=== PATIENT | female | born 1975 | race Caucasian/White ===

== ENCOUNTER 2017-08-05 12:23 | Inpatient (IN) | payer OTHER ==
[~2017-08-05] VITALS: Ht 165.1 cm; Wt 128.8 kg
[~2017-08-05 12:23] MED LIST: ACET-8386 PO; BUPR100T3 PO; CALC500C17 PO; CITA40TA13 PO; FENO145T PO; GEMF600T5 PO; GLU500 PO; GLYB5TAB14 PO; TRAZ-289 PO
[2017-08-05 12:28] VITALS: BP 144/71
--- NOTE | 2017-08-05 12:35 | NUR ---
PT AMBULATES W/ STEADY GAIT TO BED 11 AT THIS TIME.
--- NOTE | 2017-08-05 12:40 | NUR ---
42 YO F BIB FAMILY FRIEND W/ C/O EPIGASTRIC PAIN 10/10 THAT IS SHARP AND RADIATES TO HER BACK X 1.5 HOURS. PT DENIES SOB, BUT REPORTS SHE HAS N/V. SKIN IS WARM AND DRY TO THE TOUCH. PT IS RELAXING ON [facility] DURING ASSESSMENT. RR EVEN AND UNLABORED. LUNG SOUNDS CLEAR. PT DENIES ABD PAIN. A&O X 4. GCS 15. CMS INTACT, NO EDEMA NOTED. ER MD SECHRIST NOTIFIED OF PT STATUS. PT NEEDS MET. SAFETY PRECAUTIONS IN PLACE. WILL CONTINUE TO MONITOR.
[2017-08-05] MEDS ORDERED: HYDROmorphone PFS 2 MG/ML SYR IVP ONE ×2 (13:15→14:50)
[2017-08-05] MEDS ORDERED: ONDANSETRON 4 MG/2 ML VIAL IVP ONE (13:15)
--- NOTE | 2017-08-05 13:45 | NUR ---
pt resting in [facility] at this time. will continue to monitor.
[2017-08-05 14:42] LABS: BASOPHILS # (AUTO) 0.1 K/uL (0.00-0.22); BASOPHILS % (AUTO) 0.6 % (0.0-2.0); EOSINOPHILS # (AUTO) 0.5 K/uL (0-0.4); EOSINOPHILS % (AUTO) 4.2 % (0.0-4.0); HEMATOCRIT 35.4 % (36-48); HEMOGLOBIN 11.7 g/dL (12.0-16.0); LYMPHOCYTES # (AUTO) 3.1 K/uL (2.5-16.5); LYMPHOCYTES % (AUTO) 28.8 % (20.5-51.1); MEAN CORPUSCULAR HEMOGLOBIN 27 pg (27-31); MEAN CORPUSCULAR HGB CONC 33 g/dL (33-37); MEAN CORPUSCULAR VOLUME 81.7 fL (80-94); MONOCYTES # (AUTO) 0.4 K/uL (0.8-1.0); NEUTROPHILS # (AUTO) 6.8 K/uL (1.8-7.7); NEUTROPHILS % (AUTO) 62.4 % (42.2-75.2); PLATELET COUNT (AUTO) 232 K/uL (140-450); RED BLOOD CELL COUNT(AUTO) 4.34 MIL/uL (4.20-5.40)
[2017-08-05 14:48] LABS: WHITE BLOOD COUNT (AUTO) 10.8 K/uL (4.8-10.8)
--- NOTE | 2017-08-05 14:50 | NUR ---
Pt dry heaving at this time. pt requesting a cup of ice chips, which was provided as tolerated. will continue to monitor.
[2017-08-05] MEDS ORDERED: NACL 0.9% 1,000 ML IV SCH ×2 (15:06→17:45)
[2017-08-05] MEDS ORDERED: ACETAMINOPHEN 325 MG TAB PO PRN (15:10)
[2017-08-05 16:35] VITALS: BP 171/89
--- NOTE | 2017-08-05 16:35 | NUR ---
RECEIVED PT VIA NAGI, PT IS AAOX4, AMBULATORY, IV IS ON THE LEFT FA, PATENT, INTACT FLUSHING WELL, PATIENT COMPLAINING OF ABDOMINAL PAIN, 12/11, NO RESPIRATORY DISTRESS NOTED, DISCUSSED PLAN OF CARE WITH PT, PT VERBALIZED UNDERSTANDING, SAFETY/FALL PRECAUTIONS ARE IN PLACE, CALL LIGHT WITHIN REACH, WILL CONTINUE TO MONITOR.
--- NOTE | 2017-08-05 16:38 | NUR ---
Patient will be admitted to care of Dr Rodriguez. Admited to Tele. Will go to [id number]. Belongings list completed. Report to DAVID Dickson.
--- NOTE | 2017-08-05 17:37 | NUR ---
PAGED DR. KUMAR FOR ADMITTING ORDERS.
[2017-08-05] MEDS ORDERED: MORPHINE SULFATE 4 MG/ML SYR IVP PRN (17:45)
[2017-08-05] MEDS ORDERED: ONDANSETRON 4 MG/2 ML VIAL IVP PRN (17:50)
[2017-08-05] MEDS: HYDROmorphone PFS 2 MG/ML SYR IVP PRN ×2 (18:19→22:52)
[2017-08-05 19:07] LABS: POTASSIUM 3.4 mmol/L (3.5-5.1)
[2017-08-05 19:08] LABS: ANION GAP 22.4 (8-16); CREATININE 0.7 mg/dL (0.6-1.3); TOTAL BILIRUBIN 0.4 mg/dL (0.0-1.0)
[2017-08-05 19:09] LABS: ALBUMIN 3.8 g/dL (3.4-5.0)
--- NOTE | 2017-08-05 19:31 | NUR ---
ENDORSED PT TO CABLE ARMORER NURSE FOR CONTINUITY OF CARE. PT STABLE AT THIS TIME, FAMILY IS AT BEDSIDE.
--- NOTE | 2017-08-05 19:31 | NUR ---
RECEIVED PATIENT AWAKE IN BED WITH FAMILY MEMBERS. CALL LIGHT WITHIN REACH. DISCUSS PLAN OF CARE. WILL CONTINUE TO MONITOR.
[2017-08-05 20:00] VITALS: BP 136/77
--- NOTE | 2017-08-05 21:35 | NUR ---
SEEN PATIENT ASLEEP IN BED. NO COMPLAIN OF PAIN AT THIS TIME. CALL LIGHT WITHIN REACH. WILL CONTINUE TO MONITOR.
[2017-08-05] MEDS: DEXT 5% / NACL 0.45% 1,000 ML IV SCH (23:45)
[2017-08-06] VITALS: BP 139/83
--- NOTE | 2017-08-06 00:05 | NUR ---
DR. KUMAR SEE THE PATIENT AND ORDERED LIPASE AND CMP. CALLED LAB AND SPOKE TO DR. KUMAR ABOUT THE NEW ORDER.
[2017-08-06] MEDS: ONDANSETRON 4 MG/2 ML VIAL IVP PRN ×4 (01:05→23:23)
[2017-08-06] MEDS: HYDROmorphone PFS 2 MG/ML SYR IVP PRN ×3 (03:41→23:17)
[2017-08-06 04:00] VITALS: BP 136/81
--- NOTE | 2017-08-06 07:27 | NUR ---
ENDORSEMENT GIVEN TO AM SHIFT NURSE FOR CONTINUITY OF CARE. PATIENT IN STABLE CONDITION.
--- NOTE | 2017-08-06 07:35 | NUR ---
RECEIVED REPORT FROM TICKET PULLER NURSE, PT IS SLEEPING IN BED BUT EASILY AWAKEN, PT IS AAOX4, AMBULATORY, IV IS ON THE LEFT FA, PATENT, INTACT FLUSHING WELL, NO RESPIRATORY DISTRESS NOTED, DISCUSSED PLAN OF CARE WITH PT, PT VERBALIZED UNDERSTANDING, SAFETY/FALL PRECAUTIONS ARE IN PLACE, CALL LIGHT WITHIN REACH, WILL CONTINUE TO MONITOR.
[2017-08-06 07:55] LABS: BASOPHILS # (AUTO) 0.1 K/uL (0.00-0.22); BASOPHILS % (AUTO) 0.6 % (0.0-2.0); EOSINOPHILS # (AUTO) 0.1 K/uL (0-0.4); EOSINOPHILS % (AUTO) 0.5 % (0.0-4.0); HEMATOCRIT 42.2 % (36-48); HEMOGLOBIN 14.5 g/dL (12.0-16.0); LYMPHOCYTES # (AUTO) 0.9 K/uL (2.5-16.5); LYMPHOCYTES % (AUTO) 5.1 % (20.5-51.1); MEAN CORPUSCULAR HEMOGLOBIN 28 pg (27-31); MEAN CORPUSCULAR HGB CONC 35 g/dL (33-37); MONOCYTES # (AUTO) 1.2 K/uL (0.8-1.0); MONOCYTES % (AUTO) 6.4 % (1.7-9.3); NEUTROPHILS % (AUTO) 87.4 % (42.2-75.2); PLATELET COUNT (AUTO) 311 K/uL (140-450); RED BLOOD CELL COUNT(AUTO) 5.21 MIL/uL (4.20-5.40); RED CELL DISTRIBUTION WIDTH 15.7 % (11.6-13.7); WHITE BLOOD COUNT (AUTO) 18.3 K/uL (4.8-10.8)
[2017-08-06] MEDS: HYDROmorphone 1 MG/ML AMP IVP PRN ×2 (07:59→17:58)
[2017-08-06 08:00] VITALS: BP 161/75
[2017-08-06] MEDS: DEXT 5% / NACL 0.45% 1,000 ML IV SCH ×2 (08:10→19:45)
[2017-08-06] MEDS: ENOXAPARIN 40 MG/0.4 ML SYR SUBQ SCH (09:41)
[2017-08-06] MEDS ORDERED: traZODone 50 MG TAB PO SCH (10:13)
--- NOTE | 2017-08-06 11:20 | NUR ---
PT TAKEN OFF UNIT TO HAVE CT-SCAN OF ABDOMEN DONE. PT LEFT IN STABLE CONDITION.
--- NOTE | 2017-08-06 11:35 | NUR ---
PT RETURNED TO UNIT FROM CT-SCAN. PT FEELING NAUSEAS, WILL MEDICATE ANTI NAUSEA MEDICATION.
[2017-08-06] MEDS ORDERED: POTASSIUM CHLORIDE 10 MEQ TABER PO SCH (11:46)
[2017-08-06 12:00] VITALS: BP 142/84
[2017-08-06 16:00] VITALS: BP 116/65
--- NOTE | 2017-08-06 17:45 | NUR ---
PT RESTING IN BED AT THIS TIME, NO S/S OF RESPIRATORY DISTRESS OR DISCOMFORT NOTED, FAMILY IS AT BEDSIDE, CALL LIGHT WITHIN REACH.
--- NOTE | 2017-08-06 19:20 | NUR ---
ENDORSED PT TO STOCKROOM SUPERVISOR NURSE FOR CONTINUITY OF CARE, PT STABLE AT THIS TIME, FAMILY IS AT BEDSIDE.
--- NOTE | 2017-08-06 19:21 | NUR ---
RECEIVED BEDSIDE REPORT FROM ANDREINA RN, PT STABLE, NO DISTRESS NOTED, IV TO L FA 24G RUNNING D5 1/2 NS @ 100ML/HR, INFUSING WELL, PATENT, INTACT, PT ON ROOM AIR, NO SOB, DENIES ANY PAIN AT THIS MOMENT, INITIAL ASSESSMENT DONE, ALL SAFETY PRECAUTION MET, FAMILY BY BEDSIDE, CALL LIGHT WITHIN REACH, WILL CONTINUE TO MONITOR.
[2017-08-06 20:00] VITALS: BP 122/66
[2017-08-06] MEDS: buPROPion 100 MG TAB PO SCH (21:01)
[2017-08-06] MEDS: GEMFIBROZIL 600 MG TAB PO SCH (21:01)
--- NOTE | 2017-08-06 21:01 | NUR ---
DUE MEDICATION GIVEN, PT TOLERATED WELL, NO DISTRESS NOTED, CALL LIGHT WITHIN REACH, WILL CONTINUE TO MONITOR.
--- NOTE | 2017-08-06 23:17 | NUR ---
PT C/O PAIN 11/10, PAIN MEDICATION GIVEN, PT TOLERATED WELL, NO DISTRESS NOTED, PT STATED ALSO FEELING NAUSEOUS, ZOFRAN GIVEN, PT TOLERATED WELL, NO DISTRESS NOTED, CALL LIGHT WITHIN REACH, WILL CONTINUE TO MONITOR.
[2017-08-07] VITALS: BP 124/66
--- NOTE | 2017-08-07 02:10 | NUR ---
CHECKED ON PT, PT SLEEPING, NO DISTRESS NOTED, CALL LIGHT WITHIN REACH, WILL CONTINUE TO MONITOR.
[2017-08-07 04:00] VITALS: BP 123/67
[2017-08-07] MEDS: HYDROmorphone PFS 2 MG/ML SYR IVP PRN ×5 (04:04→21:13)
[2017-08-07] MEDS: ONDANSETRON 4 MG/2 ML VIAL IVP PRN ×4 (04:06→16:50)
--- NOTE | 2017-08-07 04:07 | NUR ---
PT C/O PAIN, PAIN MEDICATION GIVEN, PT TOLERATED WELL, NO DISTRESS NOTED, CALL LIGHT WITHIN REACH, WILL CONTINUE TO MONITOR.
[2017-08-07] MEDS: DEXT 5% / NACL 0.45% 1,000 ML IV SCH ×2 (04:11→12:02)
--- NOTE | 2017-08-07 07:04 | NUR ---
ENDORSED PLAN OF CARE TO DAY SHIFT NURSE KY RN, PT STABLE, NO DISTRESS NOTED, CALL LIGHT WITHIN REACH.
--- NOTE | 2017-08-07 07:06 | NUR ---
RECEIVED REPORT FROM COLLECTION TELLER NURSE AT BEDSIDE FOR CONTINUITY OF CARE. PATIENT RESTING IN BED, NO DISTRESS NOTED, IV TO R FA 24G, INTACT, PATENT, AND ASYMPTOMATIC, RUNNING D5 1/2 NS @ 100ML/HR, INFUSING WELL. PT ON ROOM AIR, NO SOB, DENIES ANY PAIN AT THIS MOMENT, INITIAL ASSESSMENT DONE, ALL SAFETY PRECAUTION MET, CALL LIGHT WITHIN REACH, WILL CONTINUE TO MONITOR PATIENT.
[2017-08-07 08:00] VITALS: BP 113/63
[2017-08-07] MEDS: traZODone 50 MG TAB PO SCH (08:11)
[2017-08-07] MEDS: GEMFIBROZIL 600 MG TAB PO SCH (08:11)
[2017-08-07] MEDS: buPROPion 100 MG TAB PO SCH ×2 (08:12→20:45)
[2017-08-07] MEDS: ENOXAPARIN 40 MG/0.4 ML SYR SUBQ SCH (08:22)
--- NOTE | 2017-08-07 08:25 | NUR ---
ADMINISTERED ORDERED MEDICATIONS, PATIENT REFUSED TO TAKE CELEXA, SAYING THAT SHE "DOES NOT TAKE THAT MEDICATION ANYMORE". "THE DOCTOR PRESCRIBED ME NEW MEDICATION". HOWEVER, PATIENT DOES NOT REMEMBER WHAT IT WAS. PATIENT C/O 8/ ABDOMINAL PAIN, PRN DILAUDID AND ZOFRAN ADMINISTERED. PATIENT TOLERATED THEM WELL. PATIENT NOW RESTING IN BED, MEDICATED FOR PAIN. NO SIGNS OF DISTRESS OR SOB NOTED ON ROOM AIR, SAFETY PRECAUTION IN PLACE, CALL LIGHT WITHIN REACH. WILL CONTINUE TO MONITOR PATIENT.
[2017-08-07] MEDS ORDERED: CITALOPRAM 20 MG TAB PO SCH (09:00)
--- NOTE | 2017-08-07 09:09 | NUR ---
PATIENT HAS BEEN SCREENED AND CATEGORIZED MODERATE NUTRITION RISK. PATIENT WILL BE SEEN WITHIN 3-5 DAYS OF ADMISSION. 08/08/17 08/10/[address]
[2017-08-07 09:55] LABS: BASOPHILS # (AUTO) 0.1 K/uL (0.00-0.22); BASOPHILS % (AUTO) 0.4 % (0.0-2.0); EOSINOPHILS % (AUTO) 0.1 % (0.0-4.0); HEMATOCRIT 38.9 % (36-48); HEMOGLOBIN 12.9 g/dL (12.0-16.0); LYMPHOCYTES # (AUTO) 2.2 K/uL (2.5-16.5); LYMPHOCYTES % (AUTO) 11.6 % (20.5-51.1); MEAN CORPUSCULAR HEMOGLOBIN 27 pg (27-31); MEAN CORPUSCULAR HGB CONC 33 g/dL (33-37); MEAN CORPUSCULAR VOLUME 80.9 fL (80-94); MONOCYTES # (AUTO) 0.6 K/uL (0.8-1.0); MONOCYTES % (AUTO) 2.9 % (1.7-9.3); NEUTROPHILS # (AUTO) 16.2 K/uL (1.8-7.7); PLATELET COUNT (AUTO) 255 K/uL (140-450); RED BLOOD CELL COUNT(AUTO) 4.81 MIL/uL (4.20-5.40); RED CELL DISTRIBUTION WIDTH 15.5 % (11.6-13.7); WHITE BLOOD COUNT (AUTO) 19.1 K/uL (4.8-10.8)
[2017-08-07 10:28] LABS: CHOL/HDL RATIO 10.5 (1-4.5); HDL CHOLESTEROL 35 mg/dL (40-60); TRIGLYCERIDES 1603 mg/dL (30-150)
[2017-08-07 12:00] VITALS: BP 152/56
--- NOTE | 2017-08-07 12:12 | NUR ---
PATIENT C/O OF NAUSEA, ZOFRAN PRN ADMINISTERED. PATIENT ALSO C/O 8/10 ABDOMINAL PAIN, PRN DILAUDID ADMINISTERED. PATIENT TOLERATED THEM WELL. FAMILY MEMBERS AT BEDSIDE. TEMP 99.5, COOLING MEASURES IN PLACE, PATIENT GIVEN ICE PACKS. PATIENT NOW RESTING IN BED, MEDICATED FOR PAIN. NO SIGNS OF DISTRESS OR SOB NOTED ON ROOM AIR, SAFETY PRECAUTION IN PLACE, CALL LIGHT WITHIN REACH. WILL CONTINUE TO MONITOR PATIENT.
--- NOTE | 2017-08-07 13:15 | NUR ---
PATIENT RESTING IN BED, STATES THAT PAIN IS "TOLERABLE", TEMP. 98.8. FAMILY AT BEDSIDE. PATIENT NOW RESTING IN BED, NO SIGNS OF DISTRESS OR SOB NOTED ON ROOM AIR, SAFETY PRECAUTION IN PLACE, CALL LIGHT WITHIN REACH. WILL CONTINUE TO MONITOR PATIENT.
--- NOTE | 2017-08-07 14:25 | NUR ---
DR. PARK CALLED. UPDATED HIM ON PATIENT'S CONDITION AND STATUS. HE VERBALIZED UNDERSTANDING AND SAID THAT HE WILL BE IN LATER TODAY TO SEE HER. PASSED THIS MESSAGE ONTO THE PATIENT. SHE VERBALIZED UNDERSTANDING.
--- NOTE | 2017-08-07 15:30 | NUR ---
PATIENT RESTING IN BED, NO SIGNS OF DISTRESS OR SOB NOTED ON ROOM AIR. RESPIRATIONS EVEN AND UNLABORED. PATIENT DENIES PAIN. SAFETY PRECAUTION IN PLACE, CALL LIGHT WITHIN REACH, WILL CONTINUE TO MONITOR PATIENT.
[2017-08-07 16:00] VITALS: BP 148/60
--- NOTE | 2017-08-07 16:18 | NUR ---
FAXED INITIAL REVIEW TO [facility] [phone] PHONE NICKO [phone]
--- NOTE | 2017-08-07 16:54 | NUR ---
PATIENT C/O 8/10 ABDOMINAL PAIN, PRN DILAUDID AND ZOFRAN ADMINISTERED. PATIENT TOLERATED THEM WELL. FAMILY MEMBERS AT BEDSIDE. PATIENT NOW RESTING IN BED, MEDICATED FOR PAIN. NO SIGNS OF DISTRESS OR SOB NOTED ON ROOM AIR, SAFETY PRECAUTION IN PLACE, CALL LIGHT WITHIN REACH. WILL CONTINUE TO MONITOR PATIENT.
--- NOTE | 2017-08-07 18:41 | NUR ---
PAGED DR. KUMAR, DR GOULD ONLINE PRODUCER. SPOKE TO DR. GOULD ABOUT PATIENT'S HX OF DM BUT NO ACCUCHECK ON EMAR. NEW ORDERS IN. PATIENT CURRENTLY SLEEPING IN BED, NO SIGNS OF DISTRESS OR SOB NOTED. SAFETY PRECAUTION IN PLACE, CALL LIGHT WITHIN REACH, WILL CONTINUE TO MONITOR PATIENT.
[2017-08-07] MEDS ORDERED: DEXTROSE 50% 50 ML SYR IVP PRN (18:45)
--- NOTE | 2017-08-07 19:30 | NUR ---
REPORT GIVEN TO BLADE ALIGNER NURSE AT BEDSIDE FOR CONTINUITY OF CARE. PATIENT IN STABLE CONDITION.
--- NOTE | 2017-08-07 19:30 | NUR ---
RECEIVED PT IN STABLE CONDITION FROM A M NURSE. SITTING ON THE SIDE OF BED. TELEMETRY PT. WITH NO C/O ANY DISCOMFORT NOR PAIN NOTED AT THIS TIME. HAS IV ACCESS ON THE RT FA#24. CL;EAR AND PATENT. PLAN OF CARE DISCUSSED AND VERBALIZED UNDERSTANDING. KEPT PT NPO ORDERED AND PT ALSO INSTRUCTED . BED ON LOWEST POSITION. CALL LIGHT PLACED WITHIN EASY REACH. WILL CONTINUE TO MONITOR.
[2017-08-07 20:00] VITALS: BP 117/68
[2017-08-07] MEDS: BLOOD GLUCOSE MONITORING 1 DEV DEV FS SCH (20:45)
--- NOTE | 2017-08-07 20:55 | NUR ---
DR. PARK CAME. SEEN PT . WITH NO NEW ORDER MADE.
[2017-08-07] MEDS: INSULIN LISPRO SLIDING SCALE 100 UNITS/ML VIAL SUBQ PRN (21:06)
--- NOTE | 2017-08-07 21:06 | NUR ---
BLOOD SUGAR WAS CHECKED RESULT 205. INSULIN COVERAGE GIVEN. WITH IVF D 5 1/2 NS @100 ML /HR INFUSING .
[2017-08-07 22:12] LABS: ANION GAP 21.1 (8-16); POTASSIUM 4.1 mmol/L (3.5-5.1)
[2017-08-07 22:13] LABS: ALBUMIN 3.5 g/dL (3.4-5.0); TOTAL BILIRUBIN 0.8 mg/dL (0.0-1.0)
--- NOTE | 2017-08-07 23:00 | NUR ---
PT IS ASLEEP. NO S/S OF ANY DISCOMFORT/PAIN NOTED. WILL CONTINUE TO MONITOR.
[2017-08-08] VITALS (9 sets, daily range): BP systolic 112–146; BP diastolic 50–90
--- NOTE | 2017-08-08 00:05 | NUR ---
VITAL SIGNS TAKEN. NO C/O OF ANY ABDOMINAL PAIN AT THIS TIME. WILL CONTINUE TO MONITOR.
[2017-08-08] MEDS: DEXT 5% / NACL 0.45% 1,000 ML IV SCH ×3 (00:40→11:45)
[2017-08-08] MEDS: HYDROmorphone PFS 2 MG/ML SYR IVP PRN ×5 (01:13→20:36)
--- NOTE | 2017-08-08 01:20 | NUR ---
PT GOT UP TO BATHROOM ,VOIDED. AN OLD URINE SPECIMEN IN THE BATHROOM. PT SAID THAT WAS HERS. DUMPED. CHECKED ORDERS. URINE SPECIMEN STILL NEEDED. SO NEW CONTAINER FOR URINE GIVEN TO PT . MADE AWARE THE NEED TO COLLECT A NEW SPECIMEN.
--- NOTE | 2017-08-08 02:13 | NUR ---
MADE ROUNDS. PT ASLEEP. NO S/S OF ANY PAIN NOTED.
[2017-08-08] MEDS: BLOOD GLUCOSE MONITORING 1 DEV DEV FS SCH ×4 (06:10→20:30)
[2017-08-08] MEDS: INSULIN LISPRO SLIDING SCALE 100 UNITS/ML VIAL SUBQ PRN ×3 (06:13→17:30)
--- NOTE | 2017-08-08 06:13 | NUR ---
BLOOD SUGAR WAS CHECKED RESULT 189. INSULIN COVERAGE SUB Q GIVEN.
--- NOTE | 2017-08-08 07:20 | NUR ---
ENDORSED PT IN STABLE CONDITION TO AM NURSE.
--- NOTE | 2017-08-08 07:21 | NUR ---
RECEIVED REPORT FROM INFORMATION SYSTEMS SECURITY ANALYST NURSE AT BEDSIDE FOR CONTINUITY OF CARE. PATIENT RESTING IN BED, NO DISTRESS NOTED, IV TO R FA 24G, INTACT, PATENT, AND ASYMPTOMATIC, RUNNING D5 1/2 NS @ 100ML/HR, INFUSING WELL. PT ON ROOM AIR, NO SOB, MEDICATED FOR PAIN AT 0615, PAIN LEVEL IS REDUCED AT THE MOMENT. INITIAL ASSESSMENT DONE, SAFETY PRECAUTIONS IN PLACE, CALL LIGHT WITHIN REACH, WILL CONTINUE TO MONITOR PATIENT.
[2017-08-08] MEDS: buPROPion 100 MG TAB PO SCH ×2 (08:37→20:38)
[2017-08-08] MEDS: traZODone 50 MG TAB PO SCH (08:37)
[2017-08-08] MEDS: ENOXAPARIN 40 MG/0.4 ML SYR SUBQ SCH (08:41)
--- NOTE | 2017-08-08 08:42 | NUR ---
ORDERED MEDICATIONS ADMINISTERED. PATIENT TOLERATED THEM WELL. NO SIGNS OF DISTRESS OR SOB NOTED ROOM AIR. RESPIRATIONS EVEN AND UNLABORED. PATIENT DENIES PAIN AT THE MOMENT. SAFETY PRECAUTION IN PLACE, CALL LIGHT WITHIN REACH, WILL CONTINUE TO MONITOR PATIENT.
[2017-08-08] MEDS ORDERED: DEXTROSE 50% 50 ML SYR IVP PRN (10:25)
[2017-08-08 10:29] LABS: BASOPHILS # (AUTO) 0.1 K/uL (0.00-0.22); BASOPHILS % (AUTO) 0.6 % (0.0-2.0); EOSINOPHILS # (AUTO) 0.1 K/uL (0-0.4); EOSINOPHILS % (AUTO) 0.5 % (0.0-4.0); HEMATOCRIT 33.9 % (36-48); HEMOGLOBIN 11.3 g/dL (12.0-16.0); LYMPHOCYTES # (AUTO) 2.4 K/uL (2.5-16.5); LYMPHOCYTES % (AUTO) 13.8 % (20.5-51.1); MEAN CORPUSCULAR HEMOGLOBIN 27 pg (27-31); MEAN CORPUSCULAR HGB CONC 33 g/dL (33-37); MEAN CORPUSCULAR VOLUME 80.2 fL (80-94); MONOCYTES # (AUTO) 0.6 K/uL (0.8-1.0); MONOCYTES % (AUTO) 3.3 % (1.7-9.3); NEUTROPHILS # (AUTO) 14.4 K/uL (1.8-7.7); NEUTROPHILS % (AUTO) 81.8 % (42.2-75.2); PLATELET COUNT (AUTO) 253 K/uL (140-450); RED BLOOD CELL COUNT(AUTO) 4.23 MIL/uL (4.20-5.40); RED CELL DISTRIBUTION WIDTH 15.7 % (11.6-13.7); WHITE BLOOD COUNT (AUTO) 17.6 K/uL (4.8-10.8)
--- NOTE | 2017-08-08 10:30 | NUR ---
PATIENT SLEEPING, NO SIGNS OF DISTRESS OR SOB NOTED ROOM AIR. RESPIRATIONS EVEN AND UNLABORED. SAFETY PRECAUTION IN PLACE, CALL LIGHT WITHIN REACH, WILL CONTINUE TO MONITOR PATIENT.
[2017-08-08 10:41] LABS: CHOL/HDL RATIO 11.9 (1-4.5)
[2017-08-08 10:58] LABS: ANION GAP 14.1 (8-16); CARBON DIOXIDE 23.3 mmol/L (21-32); CREATININE 1.4 mg/dL (0.6-1.3); POTASSIUM 3.4 mmol/L (3.5-5.1); TOTAL BILIRUBIN 0.7 mg/dL (0.0-1.0)
[2017-08-08 10:59] LABS: ALBUMIN 2.2 g/dL (3.4-5.0)
[2017-08-08] MEDS: ONDANSETRON 4 MG/2 ML VIAL IVP PRN (12:03)
--- NOTE | 2017-08-08 12:21 | NUR ---
BLOOD SUGAR 185, COVERAGE GIVEN. PATIENT C/O 8/10 ABD PAIN RADIATING TO THE BACK. PATIENT ALSO C/O OF NAUSEA. PRN ZOFRAN AND PRN DILAUDID 2MG ADMINISTERED. PATIENT TOLERATED IT WELL. PATIENT WILL BE TRANSFERRED TO ICU. PATIENT AWARE OF PLAN AND VERBALIZED UNDERSTANDING. PATIENT'S BELONGINGS PACKED UP AND WILL BE TAKEN WITH PATIENT TO ICU. PATIENT CURRENTLY RESTING IN BED, NO SIGNS OF DISTRESS OR SOB NOTED ON ROOM AIR. SAFETY PRECAUTION IN PLACE, CALL LIGHT WITHIN REACH, WILL CONTINUE TO MONITOR PATIENT.
--- NOTE | 2017-08-08 13:00 | NUR ---
TRANSFERRED PATIENT TO ICU2. REPORT GIVEN AT BEDSIDE TO ICU NURSE, SIRI, FOR CONTINUITY OF CARE. PATIENT IN STABLE CONDITION. Addendum: 08/08/17 at 1335 by Armond Serna RN PATIENT TOOK ALL HER BELONGINGS WITH HER.
--- NOTE | 2017-08-08 13:04 | NUR ---
TRANSFERRED PT FROM [facility], PT AWAKE, ALERT. ON ROOM AIR, O2 SAT 100%, C/O PAIN BUT IT IS TOLERABLE AND NURSE JOSETTE FROM [facility] GAVE DILAUDID 2 [address] KUMAR REGARDING IV FLUID ORDER. WILL FOLLOW UP. Addendum: 08/08/17 at 1307 by Osman Edwards RN PUT PT ON BEDSIDE MONITOR, CALL LIGHT IN REACH, ORIENTED PT ENVIRONMENT.
--- NOTE | 2017-08-08 13:10 | NUR ---
DR. SALAZAR CALLED BACK, NOTIFIED DR. SALAZAR PT NA 131, K 3.4, CREATINE 1.4 AND BUN 28, PT ON D51/2 NS AT 100 MLS/HR, PER DR. SALAZAR CHANGE IV FLUID TO D5 NS AT 100 MLS/HR, WILL CARRY OUT.
[2017-08-08] MEDS ORDERED: DEXT 5% /NACL 0.9% 1,000 ML IV SCH (13:25)
--- NOTE | 2017-08-08 15:07 | NUR ---
FAXED concurrent REVIEW TO [facility] [phone] PHONE NICKO [phone]
[2017-08-08] MEDS ORDERED: POTASSIUM CHLORIDE 20% 40 MEQ/15 ML UDC PO SCH (15:08)
[2017-08-08] MEDS: LACTATED RINGERS 1,000 ML IV SCH (15:17)
--- NOTE | 2017-08-08 16:30 | NUR ---
TRIED TO INSERT F/C, UNABLE TO INSERT SUCCESSFULLY , CHARGE NURSE TODD TRIED A NEW F/C KIT ALSO, IT WAS UNSUCCESSFUL.
[2017-08-08] MEDS: SENNA 8.6 MG TAB PO SCH (16:33)
[2017-08-08] MEDS: AMYLASE/LIPASE/PROTEASE 1 CAPDR PO SCH (16:33)
[2017-08-08] MEDS: GEMFIBROZIL 600 MG TAB PO SCH (16:33)
[2017-08-08] MEDS: METOCLOPRAMIDE 10 MG TAB PO SCH (16:33)
--- NOTE | 2017-08-08 18:15 | NUR ---
IV SITE LEAKING, UNABLE TO FLUSH. TRIED TO INSERT NEW IV, UNABLE TO FIND VEIN. CHARGE NURSE AWARE.
--- NOTE | 2017-08-08 19:00 | NUR ---
ASSISTED PT TO BEDSIDE COMMODE, PT HAD LARGE AMOUNT OF BM.
--- NOTE | 2017-08-08 19:08 | NUR ---
REPORT GIVEN TO NIGHT NURSE RN. PT VITALS STABLE AT THIS MOMENT.
--- NOTE | 2017-08-08 19:30 | NUR ---
ASSUMED CARE OF PT.INITIAL ASSESSMENT COMPLETED.PT AWAKE ALERT AND ORIENTED X4.SR ON MONITOR.ON ROOM AIR.NO SOB NOTED.NO PERIPHERAL IV AT THIS TIME.WILL INSERT.MAINTAINED ON CLEAR LIQUID DIET.ALSO WILL INSERT BURRIS CATHETER ORDERED.PT ABLE TO MOVE ALL EXTREMITIES.SKIN INTACT.DENIES PAIN AT THIS TIME.WILL CLOSELY MONITOR PT.
--- NOTE | 2017-08-08 20:00 | NUR ---
PERIPHERAL IV INSERTED TO LT F/A G22,INFUSING ORDERED IVF. ALSO INSERTED BURRIS CATHETER WITH YELLOW URINE NOTED.
--- NOTE | 2017-08-08 20:30 | NUR ---
PT C/O ABDOMINAL PAIN 10/10; DILAUDID GIVEN ORDERED.WILL CONTINUE TO MONITOR PT.
[2017-08-08] MEDS: GLIMEPIRIDE 2 MG TAB PO SCH (20:34)
[2017-08-08] MEDS: INSULIN LANTUS 100 UNITS/ML 10 ML VIAL SUBQ SCH (20:42)
--- NOTE | 2017-08-08 21:00 | NUR ---
BURRIS CATHETER INSERTED; URINE SPEC SENT TO LAB.
--- NOTE | 2017-08-08 23:00 | NUR ---
PT ASLEEP;NO S/SX OF PAIN NOTED.TOLERATING ROOM AIR, NO SOB NOTED.
[2017-08-08 23:21] LABS: APPEARANCE,URINE SL CLOUDY (CLEAR); BILIRUBIN,URINE NEGATIVE (NEGATIVE); BLOOD, URINE 2+ (NEGATIVE); COLOR,URINE YELLOW (YELLOW); LEUKOCYTE ESTERASE ,URINE NEGATIVE (NEGATIVE); NITRITE, URINE NEGATIVE (NEGATIVE); PH,URINE 6.5 (5.0-9.0); UGLUCOSE NEGATIVE (NEGATIVE)
[2017-08-08 23:59] LABS: RBC,URINE 11-20 (MOD) /HPF (0-5)
[2017-08-09] VITALS (9 sets, daily range): BP systolic 117–152; BP diastolic 57–80
[2017-08-09] MEDS: BLOOD GLUCOSE MONITORING 1 DEV DEV FS SCH ×7 (00:10→23:45)
--- NOTE | 2017-08-09 00:46 | NUR ---
PT ASLEEP;NO S/SX OF PAIN NOTED.NOT IN ANY DISTRESS.WILL CONTINUE TO MONITOR PT.
[2017-08-09] MEDS: LACTATED RINGERS 1,000 ML IV SCH ×3 (01:19→14:15)
--- NOTE | 2017-08-09 02:53 | NUR ---
PT RESTING COMFORTABLY.NO SIGNS OF DISTRESS NOTED.TOLERATING ROOM AIR.NO S/SX OF PAIN NOTED
--- NOTE | 2017-08-09 04:22 | NUR ---
MORNING CARE DONE.TOLERATING.NO SOB NOTED.DENIES PAIN.PT ABLE TO SELF POSITION.
--- NOTE | 2017-08-09 05:21 | NUR ---
PTS CONDITION REMAINS UNCHANGED.NO SOB NOTED.NO S/SX OF PAIN NOTED.
[2017-08-09] MEDS: HYDROmorphone 1 MG/ML AMP IVP PRN (05:26)
--- NOTE | 2017-08-09 05:36 | NUR ---
PT AWAKE; C/O ABDOMINAL PAIN.DILAUDID GIVEN ORDERED.
--- NOTE | 2017-08-09 07:15 | NUR ---
RECEIVED REPORT FROM NOC SHIFT RN. PT A/O X4, VERBALIZES NEEDS. SR ON MONITOR. PUPILS REACTIVE TO LIGHT. LUNGS CLEAR ON AUSCULTATION. LEFT AC 22 G NOTED. RIGHT AC 24 G,INTACT. NS RUNNING AT 100 ML/HR. LEFT AC SITE WAS SWOLLEN, DC'D IV LINE. KEPT ARM ELEVATED. ABDOMEN SOFT, ROUND AND NON-TENDER. ACTIVE BOWEL SOUND. BURRIS'S CATH IN PLACE DRAINING CLEAR, YELLOW URINE VIA GRAVITY. DENIES PAIN AT THIS TIME. KEPT HOB ELEVATED. BED IN LOW POSITION LOCKED. WILL CONTINUE TO MONITOR.
[2017-08-09] MEDS: INSULIN LISPRO SLIDING SCALE 100 UNITS/ML VIAL SUBQ PRN (08:42)
[2017-08-09] MEDS: METOCLOPRAMIDE 10 MG TAB PO SCH ×3 (08:43→16:17)
[2017-08-09] MEDS: GEMFIBROZIL 600 MG TAB PO SCH ×2 (08:44→17:10)
[2017-08-09] MEDS: AMYLASE/LIPASE/PROTEASE 1 CAPDR PO SCH ×3 (08:47→17:11)
[2017-08-09] MEDS: ENOXAPARIN 40 MG/0.4 ML SYR SUBQ SCH (08:53)
[2017-08-09] MEDS: traZODone 50 MG TAB PO SCH (08:55)
[2017-08-09] MEDS: GLIMEPIRIDE 2 MG TAB PO SCH ×2 (08:55→17:10)
[2017-08-09] MEDS: SENNA 8.6 MG TAB PO SCH ×2 (08:56→12:53)
[2017-08-09] MEDS: POTASSIUM CHLORIDE 20% 40 MEQ/15 ML UDC PO SCH (08:56)
[2017-08-09] MEDS: buPROPion 100 MG TAB PO SCH ×2 (08:57→20:51)
[2017-08-09] MEDS: INSULIN LANTUS 100 UNITS/ML 10 ML VIAL SUBQ SCH ×2 (09:19→20:56)
--- NOTE | 2017-08-09 09:36 | NUR ---
MORNING CARE PROVIDED.
[2017-08-09] MEDS: HYDROmorphone PFS 2 MG/ML SYR IVP PRN ×3 (09:41→23:40)
--- NOTE | 2017-08-09 10:23 | NUR ---
PT SLEEPING IN BED COMFORTABLY. NO ACUTE RESPIRATORY DISTRESS NOTED. WILL CONTINUE TO MONITOR.
[2017-08-09 10:40] LABS: BASOPHILS % (AUTO) 0.2 % (0.0-2.0); EOSINOPHILS # (AUTO) 0.2 K/uL (0-0.4); EOSINOPHILS % (AUTO) 1.1 % (0.0-4.0); HEMATOCRIT 33.1 % (36-48); HEMOGLOBIN 10.6 g/dL (12.0-16.0); LYMPHOCYTES % (AUTO) 12.4 % (20.5-51.1); MEAN CORPUSCULAR HEMOGLOBIN 26 pg (27-31); MEAN CORPUSCULAR HGB CONC 32 g/dL (33-37); MEAN CORPUSCULAR VOLUME 80.7 fL (80-94); MONOCYTES # (AUTO) 0.9 K/uL (0.8-1.0); MONOCYTES % (AUTO) 5.7 % (1.7-9.3); NEUTROPHILS % (AUTO) 80.6 % (42.2-75.2); PLATELET COUNT (AUTO) 288 K/uL (140-450); RED CELL DISTRIBUTION WIDTH 15.5 % (11.6-13.7); WHITE BLOOD COUNT (AUTO) 16.1 K/uL (4.8-10.8)
[2017-08-09 10:57] LABS: ALBUMIN 2.1 g/dL (3.4-5.0); CARBON DIOXIDE 24.3 mmol/L (21-32); CHOL/HDL RATIO 11.8 (1-4.5); CREATININE 0.8 mg/dL (0.6-1.3); MAGNESIUM 2.2 mg/dL (1.8-2.4); PHOSPHORUS 2.2 mg/dL (2.5-4.9); POTASSIUM 3.3 mmol/L (3.5-5.1); TOTAL BILIRUBIN 0.6 mg/dL (0.0-1.0)
--- NOTE | 2017-08-09 12:36 | NUR ---
SISTER AT BEDSIDE TALKING WITH PATIENT.
--- NOTE | 2017-08-09 12:53 | NUR ---
PT HAD X2 DIARRHES. HELD SENNA AT THIS TIME. CHARGE NURSE NOTIFIED.
--- NOTE | 2017-08-09 13:55 | NUR ---
DR. KUMAR AT BED SIDE EVALUATING PT.
--- NOTE | 2017-08-09 14:21 | NUR ---
08/09/17 RD INITIAL ASSESSMENT COMPLETED PLEASE REFER TO NUTRITION ASSESSMENT UNDER CARE ACTIVITY FOR ESTIMATED NUTRITIONAL NEEDS. 1. CONTINUE CLEAR LIQUID DIET TOLERATED 2. RECOMMEND CARDIAC AND CCHO 60GM DIET WHEN MEDICALLY APPROPRIATE TO ADVANCE DIET. 3. RD TO FOLLOW-UP 2-3 DAYS, HIGH RISK AFSHAN TRAVIS, RD
--- NOTE | 2017-08-09 14:36 | NUR ---
SEEN BY DR. LOVE. WILL FOLLOW UP ON ORDER.
[2017-08-09] MEDS ORDERED: HYDROmorphone 2 MG TAB PO PRN (14:50)
--- NOTE | 2017-08-09 15:02 | NUR ---
SR ON MONITOR. VS WNL. NO CHANGE IN LOC. WILL CONTINUE TO MONITOR.
[2017-08-09] MEDS ORDERED: PROBIOTIC SCREEN 1 EA MISC MC PRN (15:20)
--- NOTE | 2017-08-09 15:29 | NUR ---
FAXED CONCURRENT REVIEW TO [facility] [phone] PHONE NICKO [phone]
[2017-08-09] MEDS ORDERED: SODIUM PHOS / POTASSIUM PHOS 1 PKT PDR PO SCH (15:34)
[2017-08-09] MEDS: NACL 0.45% 1,000 ML IV SCH (16:12)
[2017-08-09] MEDS: SODIUM PHOS / POTASSIUM PHOS 1 PKT PDR PO SCH (17:11)
[2017-08-09] MEDS: metFORMIN 500 MG TAB PO SCH (17:11)
--- NOTE | 2017-08-09 18:12 | NUR ---
PT SLEEPING IN BED COMFORTABLY. NO ACUTE RESPIRATORY DISTRESS NOTED. WILL CONTINUE TO MONITOR.
--- NOTE | 2017-08-09 19:20 | NUR ---
PT TRANSFERRED TO [facility] 104 A SAFELY. PT ON STABLE CONDITION. REPORT GIVEN TO JORGE HERNANDEZ. HANDED CHARTS AND MEDICATION. BELONGINGS HANDED TO PATIENT.
--- NOTE | 2017-08-09 19:22 | NUR ---
RECEIVED THIS PT TRANSFER FROM ICU, AAOX4, VITAL SIGNS STABLE, ABDOMINAL PAIN SUBSIDING, IVF RESUMED AT 60ML/H, IV SITE POSITIONAL ON THE RT AC, MAINTAINED ON CLEAR LIQUID DIST, PLAN OF CARE DISCUSSED, SAFETY MEASURES IN PLACE, CALL LIGHT WITHIN REACH.
[2017-08-09] MEDS ORDERED: SENNA 8.6 MG TAB PO SCH (21:00)
--- NOTE | 2017-08-09 23:40 | NUR ---
PT AWAKE COMPLAINING OF PAIN, STATED MINIMAL RELIEF FROM DILAUDID PO, PAGED DR GOULD WITH NEW ORDER, VITAL SIGNS STABLE, NO SOB NOTED, DILAUDID IVP GIVEN PRN FOR PAIN, BLOOD SUGAR CHECKED WITH 99 RESULT, CONTINUE TO MONITOR CLOSELY.
[2017-08-10] VITALS: BP 127/59
--- NOTE | 2017-08-10 02:00 | NUR ---
PT AMBULATED TO BR WITH STEADY, VERBALIZED NO EPISODE OF DIARRHEA, MONITORED CLOSELY.
[2017-08-10 04:00] VITALS: BP 135/62
--- NOTE | 2017-08-10 04:00 | NUR ---
SLEEPING, EASILY AROUSABLE, VITAL SIGNS STABLE, BLOOD SUGAR CHECKED WITH 134 RESULT, IVF INFUSING WELL, MONITORED CLOSELY.
[2017-08-10] MEDS: BLOOD GLUCOSE MONITORING 1 DEV DEV FS SCH ×3 (04:04→12:15)
[2017-08-10] MEDS: HYDROmorphone PFS 2 MG/ML SYR IVP PRN ×2 (05:35→12:15)
[2017-08-10] MEDS: METOCLOPRAMIDE 10 MG TAB PO SCH ×2 (06:43→12:14)
--- NOTE | 2017-08-10 07:20 | NUR ---
PT AWAKE SITTING ON BED, NO SIGNS OF DISTRESS, REPORT GIVEN TO DAVID ROMERO FOR CONTINUITY OF CARE.
--- NOTE | 2017-08-10 07:21 | NUR ---
RECEIVED REPORT FROM THE AUTO BODY REPAIRER FIBERGLASS NURSE AT BEDSIDE FOR CONTINUITY OF CARE. PT IS AWAKE AND ORIENTED. SITTING UP IN BED. INTRODUCED MYSELF AND UPDATED THE BOARD. SKIN IS INTACT. LBM 5/9. PT V/S WITHIN NORMAL RANGE, BP SLIGHTLY ELEVATED. GLUCOSE CHECK 130. NO INSULIN COVERAGE NEEDED. IV ON R AC 20G, 1/2 NS INFUSING AT 60ML. PAIN IN CONTROLLED. NO SIGNS OF DISTRESS. WILL CONTINUE TO MONITOR PT.
[2017-08-10 08:00] VITALS: BP 159/85
[2017-08-10] MEDS: AMYLASE/LIPASE/PROTEASE 1 CAPDR PO SCH ×2 (08:24→12:15)
[2017-08-10] MEDS: traZODone 50 MG TAB PO SCH (08:24)
[2017-08-10] MEDS: GLIMEPIRIDE 2 MG TAB PO SCH (08:25)
[2017-08-10] MEDS: metFORMIN 500 MG TAB PO SCH ×2 (08:25→12:15)
[2017-08-10] MEDS: buPROPion 100 MG TAB PO SCH (08:25)
[2017-08-10] MEDS: GEMFIBROZIL 600 MG TAB PO SCH ×2 (08:26→12:14)
[2017-08-10] MEDS: POTASSIUM CHLORIDE 20% 40 MEQ/15 ML UDC PO SCH (08:26)
[2017-08-10] MEDS: SODIUM PHOS / POTASSIUM PHOS 1 PKT PDR PO SCH ×2 (08:26→12:15)
[2017-08-10] MEDS: ENOXAPARIN 40 MG/0.4 ML SYR SUBQ SCH (08:27)
[2017-08-10] MEDS: INSULIN LANTUS 100 UNITS/ML 10 ML VIAL SUBQ SCH (08:27)
[2017-08-10] MEDS: NACL 0.45% 1,000 ML IV SCH (08:27)
--- NOTE | 2017-08-10 08:30 | NUR ---
ADMINISTERED MORNING MEDS. PT TOLERATED WELL. WILL CONTINUE TO MONITOR PT.
[2017-08-10 09:24] LABS: MAGNESIUM 1.8 mg/dL (1.8-2.4); PHOSPHORUS 3.9 mg/dL (2.5-4.9)
[2017-08-10 09:26] LABS: ALBUMIN 2.1 g/dL (3.4-5.0); ANION GAP 14.5 (8-16); CARBON DIOXIDE 25.2 mmol/L (21-32); CREATININE 0.8 mg/dL (0.6-1.3); POTASSIUM 3.7 mmol/L (3.5-5.1); TOTAL BILIRUBIN 0.7 mg/dL (0.0-1.0)
[2017-08-10 10:03] LABS: BASOPHILS # (AUTO) 0.1 K/uL (0.00-0.22); BASOPHILS % (AUTO) 0.4 % (0.0-2.0); EOSINOPHILS # (AUTO) 0.2 K/uL (0-0.4); EOSINOPHILS % (AUTO) 1.1 % (0.0-4.0); HEMATOCRIT 32.3 % (36-48); HEMOGLOBIN 10.5 g/dL (12.0-16.0); LYMPHOCYTES # (AUTO) 2.2 K/uL (2.5-16.5); MEAN CORPUSCULAR HEMOGLOBIN 26 pg (27-31); MEAN CORPUSCULAR HGB CONC 32 g/dL (33-37); MEAN CORPUSCULAR VOLUME 81.4 fL (80-94); MONOCYTES # (AUTO) 1.3 K/uL (0.8-1.0); NEUTROPHILS # (AUTO) 14.3 K/uL (1.8-7.7); NEUTROPHILS % (AUTO) 79.5 % (42.2-75.2); PLATELET COUNT (AUTO) 288 K/uL (140-450); RED BLOOD CELL COUNT(AUTO) 3.97 MIL/uL (4.20-5.40); RED CELL DISTRIBUTION WIDTH 15.5 % (11.6-13.7); WHITE BLOOD COUNT (AUTO) 17.9 K/uL (4.8-10.8)
--- NOTE | 2017-08-10 10:10 | NUR ---
PT AMBULATING TO THE RESTROOM AND BACK. NO SIGNS OF DISTRESS. WILL CONTINUE TO MONITOR PT.
[2017-08-10 12:00] VITALS: BP 164/87
--- NOTE | 2017-08-10 12:20 | NUR ---
ADMINISTERED SCHEDULED MEDS. PT TOLERATED WELL. DR. WALL IS HERE FOR NEPHRO. D/C IVF. OK TO MAKE PT ACHS FOR BS CHECKS. WILL PUT IN ORDERS. WILL CONTINUE TO MONITOR PT.
--- NOTE | 2017-08-10 14:38 | NUR ---
D/C home with [facility] care. faxed info to Joyce at [phone] Addendum: 08/11/17 at 1102 by Lisa Chadwick CM PLEASE DISREGARD NOTE, WRONG PATIENT
--- NOTE | 2017-08-10 15:00 | NUR ---
D/C INSTRUCTIONS GIVEN TO PT. PT VERBALIZED UNDERSTANDING. SIGNED APPROPRIATE FORMS. PACKET GIVEN. REMOVED IV, CANNULA INTACT. NO BLEEDING NOTED. REMOVED ID BAND AND TELE MONITOR. PT WILL GET DRESSED AND WILL LET ME KNOW WHEN HER RIDE GETS HERE. WILL GET WHEELCHAIR READY.
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
--- NOTE | 2017-08-14 16:51 | NUR ---
ASSISTANT BRAND MANAGER NOTE: I FAXED DISCHARGE SUMMARY TO [facility] , RENUKA MAHARAJ
== END 2017-08-10 15:15 | disposition home or self-care (01) | DRG 282 ==
LOC: MED 12:23 → MTU 16:03 → MIC 08-08 13:04 → MTU 08-09 20:00
PROVIDERS: ADMIT Hospitalist; ATTEND Hospitalist
DX: K85.80 Other acute pancreatitis without necrosis or infection (principal); R65.11 Systemic inflammatory response syndrome (SIRS) of non-infectious origin with acute organ dysfunction; N17.9 Acute kidney failure, unspecified; E87.2 Acidosis; E11.65 Type 2 diabetes mellitus with hyperglycemia; Z68.42 Body mass index [BMI] 45.0-49.9, adult; E78.1 Pure hyperglyceridemia; E87.1 Hypo-osmolality and hyponatremia; E66.01 Morbid (severe) obesity due to excess calories; E78.5 Hyperlipidemia, unspecified; I10 Essential (primary) hypertension; F32.9 Major depressive disorder, single episode, unspecified; F41.9 Anxiety disorder, unspecified; D72.828 Other elevated white blood cell count; E87.6 Hypokalemia; E83.39 Other disorders of phosphorus metabolism; Z79.84 Long term (current) use of oral hypoglycemic drugs; Z79.899 Other long term (current) drug therapy; Z79.1 Long term (current) use of non-steroidal anti-inflammatories (NSAID); Z90.49 Acquired absence of other specified parts of digestive tract; Z87.891 Personal history of nicotine dependence; Z83.3 Family history of diabetes mellitus; Z82.5 Family history of asthma and other chronic lower respiratory diseases; Z91.19 Patient's noncompliance with other medical treatment and regimen
CPT/HCPCS: 36415; 80053; 80061; 81001; 81025; 82948; 83036; 83690; 83735; 83935; 84100; 84300; 84478; 85025; 87040; 87081; 87086; 96372; 96374; 99285; J1170; J1650; J1815; J2405; J7030; J7042; J7120; J8597

== ENCOUNTER 2018-07-23 23:02 | Emergency (ER) | payer OTHER ==
[~2018-07-23] VITALS: Ht 165.1 cm; Wt 117.9 kg
[~2018-07-23 23:02] MED LIST changes: -TRAZ-289 PO; +TRAZ100T99 PO
[2018-07-23 23:06] VITALS: BP 136/67
--- NOTE | 2018-07-23 23:08 | NUR ---
TO BED # 03 AMBULATORY, REPORT GIVEN TO RISHI HERNANDEZ
--- NOTE | 2018-07-23 23:23 | NUR ---
BIB FAMILY REPORTS HAVING A COUGH X1 WEEK WHICH HAS WORSENED IN THE LAST TWO DAYS CAUSING HER TO FEEL SOB. CLEAR LUNG SOUNDS, NON PRODUCTIVE, DRY COUGH. DENIES FEVER, CP, NVD. ERMD MADE AWARE OF CONDITION. CHEST XRAY TAKEN.
[2018-07-24] MEDS ORDERED: ALBUTEROL SULFATE/IPRATROPIU 3 ML SOL IH ONE
[2018-07-24] MEDS ORDERED: predniSONE 20 MG TAB PO ONE (00:45)
[2018-07-24 00:57] VITALS: BP 136/67
--- NOTE | 2018-07-24 00:58 | NUR ---
Patient discharged with v/s stable. Written and verbal after care instructions given and explained. Patient alert, oriented and verbalized understanding of instructions. Ambulatory with steady gait. All questions addressed prior to discharge. ID band removed. Patient advised to follow up with PMD. Rx of ALBUTEROL INH, PREDNISONE given. Patient educated on indication of medication including possible reaction and side effects. Opportunity to ask questions provided and answered.
== END 2018-07-24 00:58 | disposition home or self-care (01) ==
LOC: MED 23:02
DX: J45.998 Other asthma (principal); E11.9 Type 2 diabetes mellitus without complications; I10 Essential (primary) hypertension; Z79.84 Long term (current) use of oral hypoglycemic drugs; Z79.891 Long term (current) use of opiate analgesic; Z79.899 Other long term (current) drug therapy
CPT/HCPCS: 71045; 94640; 99283; J7512; J7620; Q0092

== ENCOUNTER 2018-08-03 22:49 | Emergency (ER) | payer OTHER ==
[~2018-08-03] VITALS: Ht 165.1 cm; Wt 117.9 kg
--- NOTE | 2018-08-03 23:04 | NUR ---
PT AMBULATED TO ER BED 03
[2018-08-03] MEDS ORDERED: NACL 0.9% 500 ML IV ONE (23:18)
[2018-08-03] MEDS ORDERED: KETOROLAC 30 MG/ML VIAL IVP ONE (23:20)
[2018-08-03] MEDS ORDERED: ONDANSETRON 4 MG/2 ML VIAL IVP ONE (23:20)
--- NOTE | 2018-08-03 23:36 | NUR ---
C/O CONSTANT UPPER BACK PAIN, X1 WEEKS WORSENING TODAY. REPORTS LUQ PAIN X1 WEEK THAT HAS SUBSIDED. DENIES TRAUMA/INJURY. REPORTS NAUSEA, DENIES VOMTTING. ABD IS SOFT NON TENDER WITH ACTIVE BOWEL SOUNDS. PT PLACED INTO BED, PENDING MD DUMONT.
[2018-08-04 00:18] LABS: BASOPHILS # (AUTO) 0.1 K/uL (0.00-0.22); BASOPHILS % (AUTO) 0.8 % (0.0-2.0); EOSINOPHILS # (AUTO) 0.8 K/uL (0-0.4); EOSINOPHILS % (AUTO) 8.4 % (0.0-4.0); HEMATOCRIT 36.8 % (36-48); HEMOGLOBIN 12.3 g/dL (12.0-16.0); LYMPHOCYTES # (AUTO) 3.4 K/uL (2.5-16.5); LYMPHOCYTES % (AUTO) 36.9 % (20.5-51.1); MEAN CORPUSCULAR HEMOGLOBIN 26 pg (27-31); MEAN CORPUSCULAR HGB CONC 33 g/dL (33-37); MEAN CORPUSCULAR VOLUME 78.9 fL (80-94); MONOCYTES # (AUTO) 0.5 K/uL (0.8-1.0); MONOCYTES % (AUTO) 5.8 % (1.7-9.3); NEUTROPHILS # (AUTO) 4.4 K/uL (1.8-7.7); NEUTROPHILS % (AUTO) 48.1 % (42.2-75.2); PLATELET COUNT (AUTO) 283 K/uL (140-450); RED BLOOD CELL COUNT(AUTO) 4.67 MIL/uL (4.20-5.40); RED CELL DISTRIBUTION WIDTH 14.3 % (11.6-13.7); WHITE BLOOD COUNT (AUTO) 9.2 K/uL (4.8-10.8)
[2018-08-04 00:31] LABS: ANION GAP 14.3 (8-16); CARBON DIOXIDE 24.4 mmol/L (21-32); CREATININE 0.8 mg/dL (0.6-1.3); POTASSIUM 3.7 mmol/L (3.5-5.1)
[2018-08-04 00:37] LABS: ALBUMIN 3.3 g/dL (3.4-5.0); TOTAL BILIRUBIN 0.5 mg/dL (0.0-1.0)
[2018-08-04] MEDS ORDERED: fentaNYL 0.05 MG/ML VIAL IVP ONE (00:50)
[2018-08-04 01:29] VITALS: BP 131/71
--- NOTE | 2018-08-04 01:29 | NUR ---
IV removed, catheter intact and site benign. Applied folded 4x4 gauze and tape to stop bleeding.
== END 2018-08-04 01:27 | disposition home or self-care (01) ==
LOC: MED 22:49
DX: M54.6 Pain in thoracic spine (principal); R10.12 Left upper quadrant pain; E11.9 Type 2 diabetes mellitus without complications; I10 Essential (primary) hypertension; Z79.84 Long term (current) use of oral hypoglycemic drugs; Z79.899 Other long term (current) drug therapy
CPT/HCPCS: 36415; 72128; 80053; 83690; 85025; 96361; 96374; 96375; 99284; J1885; J2405; J3010; J7030

== ENCOUNTER 2019-01-08 15:29 | Emergency (ER) | payer OTHER ==
[~2019-01-08] VITALS: Ht 165.1 cm; Wt 124.3 kg
[2019-01-08 15:35] VITALS: BP 167/88
[2019-01-08] MEDS ORDERED: DIAZEPAM 5 MG TAB PO ONE (16:30)
[2019-01-08] MEDS ORDERED: KETOROLAC 60 MG/2 ML VIAL IM ONE (16:30)
--- NOTE | 2019-01-08 16:38 | NUR ---
PT BEING TAKEN TO XRAY VIA WHEELCHAIR
--- NOTE | 2019-01-08 17:01 | NUR ---
PT RETURNED FROM XRAY, TORADOL AND DIAZEPAM ADMINISTERED ORDERED
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
--- NOTE | 2019-01-08 18:09 | NUR ---
Patient discharged with v/s stable. Written and verbal after care instructions given and explained. Patient alert, oriented and verbalized understanding of instructions. Ambulatory with steady gait. All questions addressed prior to discharge. ID band removed. Patient advised to follow up with PMD. Rx of IBUPROFEN, NITROFURANTOIN, ROBAXIN given. Patient educated on indication of medication including possible reaction and side effects. Opportunity to ask questions provided and answered. PT TO WAIT IN LOBBY FOR HER RIDE.
[2019-01-08 18:10] VITALS: BP 165/66
== END 2019-01-08 18:09 | disposition home or self-care (01) ==
LOC: MED 15:29
DX: S39.012A Strain of muscle, fascia and tendon of lower back, initial encounter (principal); N39.0 Urinary tract infection, site not specified; E11.9 Type 2 diabetes mellitus without complications; I10 Essential (primary) hypertension; Z79.84 Long term (current) use of oral hypoglycemic drugs; Z79.899 Other long term (current) drug therapy; V89.2XXA Person injured in unspecified motor-vehicle accident, traffic, initial encounter; Y93.89 Activity, other specified; Y92.89 Other specified places as the place of occurrence of the external cause; Y99.8 Other external cause status
CPT/HCPCS: 72110; 81002; 81025; 96372; 99283; J1885

== ENCOUNTER 2019-03-30 17:09 | Emergency (ER) | payer OTHER ==
[~2019-03-30] VITALS: Ht 165.1 cm; Wt 126.1 kg
[2019-03-30 17:20] VITALS: BP 156/73
--- NOTE | 2019-03-30 18:21 | NUR ---
PATIENT PRESENTS TO ED WITH C/O SOB, COUGH, UPPER BACK PAIN RADIATING TO RUQ/LUQ, AND DYSURIA X4 DAYS. O2 SAT RA 97%, BREATHING UNLABORED. HX: DM, HTN . PATIENT STATES PAIN 8/10 WHEN COGHING, VSS; PATIENT POSITIONED FOR COMFORT; HOB ELEVATED; BEDRAILS UP X2; BED DOWN. ER MD MADE AWARE OF PT STATUS.
--- NOTE | 2019-03-30 18:24 | NUR ---
PT AMBULATED TO ER BED 08
[2019-03-30] MEDS ORDERED: ALBUTEROL SULFATE/IPRATROPIU 3 ML SOL IH ONE ×2 (18:35→19:55)
--- NOTE | 2019-03-30 19:05 | NUR ---
RECIVED REPORT FROM STEVENSON HERNANDEZ.
[2019-03-30 19:15] LABS: APPEARANCE,URINE HAZY (CLEAR); BILIRUBIN,URINE NEGATIVE (NEGATIVE); BLOOD, URINE 3+ (NEGATIVE); COLOR,URINE YELLOW (YELLOW); LEUKOCYTE ESTERASE ,URINE TRACE (NEGATIVE); NITRITE, URINE POSITIVE (NEGATIVE); UGLUCOSE NEGATIVE (NEGATIVE)
[2019-03-30 19:24] LABS: RBC,URINE 11-20 (MOD) /HPF (0-5)
--- NOTE | 2019-03-30 19:24 | NUR ---
PT SITTING IN BED EYES OPEN RESPIRATIONS ARE EVEN AND UNLABORED. PT HAS 7/10 C/O UPPER BACK PAIN UNPROVOKED AND 9/10 WHEN COUGHING. PT O2SAT @ 98% ON RA. PT REPOSITIONED IN BED, BED AT LOWEST POSITION 1 SIDERAIL UP.
[2019-03-30 19:27] LABS: BARBITURATE, URINE NEG. ng/ml (NEG <=200); BENZODIAZEPINE, URINE NEG. ng/mL (NEG <=200); CANNABINOID, URINE NEG. ng/mL (NEG <=50); COCAINE, URINE NEG. ng/mL (NEG <=300); OPIATE, URINE NEG. ng/mL (NEG <=2000); PHENCYCLIDINE SCREEN,URINE NEG. ng/mL (NEG <=25)
--- NOTE | 2019-03-30 19:37 | NUR ---
Dr. Martell examining patient.
[2019-03-30] MEDS ORDERED: IBUPROFEN 800 MG TAB PO ONE (19:55)
[2019-03-30] MEDS ORDERED: KETOROLAC 60 MG/2 ML VIAL IM ONE (19:55)
--- NOTE | 2019-03-30 20:00 | NUR ---
PT DENIES KIDNEY PROBLEMS/DECREASED FUNCTION
--- NOTE | 2019-03-30 20:08 | NUR ---
X-RAY AT BEDSIDE.
--- NOTE | 2019-03-30 20:12 | NUR ---
RT AT BEDSIDE.
[2019-03-30 20:39] VITALS: BP 154/79
--- NOTE | 2019-03-30 20:39 | NUR ---
Patient discharged with v/s stable. Written and verbal after care instructions given and explained. Patient alert, oriented and verbalized understanding of instructions. Ambulatory with steady gait. All questions addressed prior to discharge. ID band removed. Patient advised to follow up with PMD. Rx of Tramadol, Bactrim DS, and Prednisone given. Patient educated on indication of medication including possible reaction and side effects. Opportunity to ask questions provided and answered.
== END 2019-03-30 20:39 | disposition home or self-care (01) ==
LOC: MED 17:09
DX: J20.9 Acute bronchitis, unspecified (principal); J45.909 Unspecified asthma, uncomplicated; E11.9 Type 2 diabetes mellitus without complications; I10 Essential (primary) hypertension; Z79.84 Long term (current) use of oral hypoglycemic drugs; Z79.899 Other long term (current) drug therapy
CPT/HCPCS: 71045; 80305; 81001; 81025; 87086; 87186; 94640; 96372; 99284; J1885; J7620

== ENCOUNTER 2019-05-12 15:58 | Emergency (ER) | payer OTHER ==
[~2019-05-12] VITALS: Ht 165.1 cm; Wt 122.5 kg
[2019-05-12 16:23] VITALS: BP 158/96
--- NOTE | 2019-05-12 17:18 | NUR ---
PT AMBULATED TO BED 4
--- NOTE | 2019-05-12 17:23 | NUR ---
STATES "I HAVE AN INFECTION ON MY RIGHT FOOT FOR 3 WEEKS". WAS NOT DIAGNOSED WITH INFECTION BY DOCTOR. DENIES INJURY. HX DM. DRY CRACKED SKIN ON RT FOOT. PT ADDS GENERALIZED BODY RASH THAT IS PRURITC. DENIES PAIN. PMH- DM, PANCREATITIS
[2019-05-12 17:44] VITALS: BP 160/91
--- NOTE | 2019-05-12 17:44 | NUR ---
Patient discharged with v/s stable. Written and verbal after care instructions given and explained. Patient alert, oriented and verbalized understanding of instructions. Ambulatory with steady gait. All questions addressed prior to discharge. ID band removed. Patient advised to follow up with PMD. Rx of HYDROCORTISONE TOPICAL CREAM, MOTRIN, BACTRIM given. Patient educated on indication of medication including possible reaction and side effects. Opportunity to ask questions provided and answered.
== END 2019-05-12 17:44 | disposition home or self-care (01) ==
LOC: MED 15:58
DX: R21 Rash and other nonspecific skin eruption (principal); M79.671 Pain in right foot; J45.909 Unspecified asthma, uncomplicated; I10 Essential (primary) hypertension; E11.9 Type 2 diabetes mellitus without complications; Z79.899 Other long term (current) drug therapy; Z79.84 Long term (current) use of oral hypoglycemic drugs
CPT/HCPCS: 82948; 99283

== ENCOUNTER 2019-06-08 12:50 | Inpatient (IN) | payer OTHER ==
[~2019-06-08] VITALS: Ht 165.1 cm; Wt 122.5 kg
[~2019-06-08 12:50] MED LIST changes: +TRAZ-471 PO; -TRAZ100T99 PO
[2019-06-08 13:17] VITALS: BP 145/77
--- NOTE | 2019-06-08 13:33 | NUR ---
ALBERTINA LAU AT BEDSIDE EVALUATING PT.
[2019-06-08] MEDS ORDERED: NACL 0.9% 1,000 ML IV ONE (13:35)
[2019-06-08] MEDS ORDERED: DICYCLOMINE HCL LIQUID 20 MG, ALUMINUM HYD/MAG/SIMETHICONE 30 ML, LIDOCAINE VISCOUS 2% ... PO ONE ×3 (13:35)
[2019-06-08] MEDS ORDERED: ONDANSETRON 4 MG/2 ML VIAL IVP ONE (13:35)
--- NOTE | 2019-06-08 13:35 | NUR ---
PT AWAKE, ALERT, AFIBRILE , AMBULATORY WITH STEADY GAIT , WITH N/V 2 X THIS MORNING AT WORK,SCE , CBS, ABDOMEN SOFT NONTENDER. PMHX HTN, DM, ACUTE PANCREATITIS.
[2019-06-08] MEDS ORDERED: LIDOCAINE VISCOUS 2% 20 ML UDC ONE (13:38)
[2019-06-08] MEDS ORDERED: DICYCLOMINE HCL LIQUID 10 MG/5 ML UDC ONE (13:38)
[2019-06-08] MEDS ORDERED: ALUMINUM HYD/MAG/SIMETHICONE 30 ML UDC ONE (13:38)
[2019-06-08] MEDS ORDERED: MORPHINE SULFATE 5 MG/ML VIAL IVP ONE (14:45)
[2019-06-08] MEDS ORDERED: fentaNYL 0.05 MG/ML VIAL IVP ONE (15:05)
[2019-06-08 15:17] LABS: BASOPHILS % (AUTO) 0.6 % (0.0-2.0); EOSINOPHILS # (AUTO) 0.5 K/uL (0-0.4); EOSINOPHILS % (AUTO) 7.2 % (0.0-4.0); HEMATOCRIT 29.7 % (36-48); HEMOGLOBIN 9.9 g/dL (12.0-16.0); LYMPHOCYTES # (AUTO) 2.3 K/uL (2.5-16.5); LYMPHOCYTES % (AUTO) 31.3 % (20.5-51.1); MEAN CORPUSCULAR HEMOGLOBIN 29 pg (27-31); MEAN CORPUSCULAR HGB CONC 33 g/dL (33-37); MEAN CORPUSCULAR VOLUME 86.2 fL (80-94); MONOCYTES # (AUTO) 0.3 K/uL (0.8-1.0); MONOCYTES % (AUTO) 3.5 % (1.7-9.3); NEUTROPHILS # (AUTO) 4.2 K/uL (1.8-7.7); NEUTROPHILS % (AUTO) 57.4 % (42.2-75.2); PLATELET COUNT (AUTO) 165 K/uL (140-450); RED BLOOD CELL COUNT(AUTO) 3.45 MIL/uL (4.20-5.40); RED CELL DISTRIBUTION WIDTH 15.3 % (11.6-13.7); WHITE BLOOD COUNT (AUTO) 7.4 K/uL (4.8-10.8)
[2019-06-08 15:18] LABS: APPEARANCE,URINE CLEAR (CLEAR); BILIRUBIN,URINE NEGATIVE (NEGATIVE); BLOOD, URINE 3+ (NEGATIVE); COLOR,URINE YELLOW (YELLOW); LEUKOCYTE ESTERASE ,URINE 1+ (NEGATIVE); NITRITE, URINE NEGATIVE (NEGATIVE); UGLUCOSE NEGATIVE (NEGATIVE)
--- NOTE | 2019-06-08 15:38 | NUR ---
PT WENT CT SCAN VIA WHEELCHAIR.
--- NOTE | 2019-06-08 15:45 | NUR ---
EMT AT BEDSIDE DOIN EKG.
--- NOTE | 2019-06-08 15:49 | NUR ---
PT BACK FROM CT SCAN VIA WHEELCHAIR.
[2019-06-08 15:51] LABS: RBC,URINE 50-80 /HPF (0-5)
[2019-06-08] MEDS ORDERED: cefTRIAXone 1,000 MG in LIDOCAINE MPF 1% 2.1 ML IM ONE (16:00)
[2019-06-08] MEDS ORDERED: cefTRIAXone 1,000 MG VIAL ONE ×2 (16:05→20:30)
[2019-06-08] MEDS ORDERED: LIDOCAINE MPF 1% 0 ML ONE (16:05)
--- NOTE | 2019-06-08 16:38 | NUR ---
ALBERTINA LAU REEVALUATING PT.
--- NOTE | 2019-06-08 17:19 | NUR ---
Pt transferred to Med/Surg via BED WITH DAVID ASIF .
[2019-06-08 17:30] VITALS: BP 151/92
--- NOTE | 2019-06-08 17:30 | NUR ---
Patient will be admitted to care of DR SALAZAR. Admited to [facility]. Will go to room 105 B. Belongings list completed. Report to rajat trimble.
--- NOTE | 2019-06-08 17:30 | NUR ---
RECEIVED BEDSIDE SHIFT REPORT FROM ER NURSE FOR CONTINUATION OF CARE. ADMIT ORDERS PLACED IN BY MD. PATIENT ORIENTED TO THE UNIT. CALL LIGHT ON AND WITHIN REACH. IV IN LEFT AC. FAMILY AT BEDSIDE. CALL LIGHT ON AND WITHIN REACH. WILL CONTINUE TO MONITOR.
[2019-06-08] MEDS ORDERED: HYDROmorphone 1 MG/ML AMP ONE (18:10)
[2019-06-08] MEDS ORDERED: DEXTROSE 50% 50 ML SYR IVP PRN (18:45)
[2019-06-08] MEDS: DEXT 5% /NACL 0.9% 1,000 ML IV SCH (18:45)
[2019-06-08] MEDS ORDERED: ACETAMINOPHEN 325 MG TAB PO PRN (18:45)
[2019-06-08] MEDS ORDERED: HYDROcodone/APAP 10/325 MG 1 TAB TAB PO PRN (18:50)
[2019-06-08 19:09] LABS: BARBITURATE, URINE NEGATIVE ng/ml (NEG <=200); BENZODIAZEPINE, URINE NEGATIVE ng/mL (NEG <=200); CANNABINOID, URINE NEGATIVE ng/mL (NEG <=50); COCAINE, URINE NEGATIVE ng/mL (NEG <=300); OPIATE, URINE NEGATIVE ng/mL (NEG <=2000); PHENCYCLIDINE SCREEN,URINE NEGATIVE ng/mL (NEG <=25)
--- NOTE | 2019-06-08 19:21 | NUR ---
BEDSIDE SHIFT REPORT GIVEN TO OLIVE BRINE TESTER NURSE FOR CONTINUATION OF CARE.
--- NOTE | 2019-06-08 19:45 | NUR ---
A/A/O X4.C/O NAUSEA.IVF NS @ 100ML/HR INFUSING WELL. KEPT NPO EXCEPT EDS.INSTRUCTED TO USE CALL LIGHT NEEDED.
[2019-06-08 20:00] VITALS: BP 133/91
[2019-06-08] MEDS: buPROPion 100 MG TAB PO SCH ×2 (21:00→21:20)
[2019-06-08] MEDS: CALCIUM CARBONATE 500 MG TAB.CHEW PO SCH (21:20)
[2019-06-08] MEDS: ONDANSETRON 4 MG/2 ML VIAL IVP PRN (21:22)
--- NOTE | 2019-06-08 21:22 | NUR ---
ZOFRAN IV ADM.
[2019-06-08] MEDS: BLOOD GLUCOSE MONITORING 1 DEV DEV FS SCH (21:55)
[2019-06-08] MEDS: INSULIN LISPRO SLIDING SCALE 100 UNITS/ML VIAL SUBQ PRN (21:58)
--- NOTE | 2019-06-08 22:00 | NUR ---
HAD EMESIS APPRX 200 ML OF CLEAR VOMITUS.
[2019-06-08] MEDS: HYDROmorphone 1 MG/ML AMP IVP PRN (23:13)
--- NOTE | 2019-06-08 23:13 | NUR ---
C/O SEVER SHARP PAIN ON EPIGASTRIC AREA.DILAUDID 1 MG IV ADM.
--- NOTE | 2019-06-08 23:43 | NUR ---
FOUND PT RESTING COMFORTABLY POST DILAUDID IV.
[2019-06-09] VITALS: BP 119/70
[2019-06-09 01:52] LABS: ANION GAP 17.8 (8-16); CREATININE 0.7 mg/dL (0.6-1.3); POTASSIUM 3.8 mmol/L (3.5-5.1); TOTAL BILIRUBIN 0.4 mg/dL (0.0-1.0)
[2019-06-09 01:53] LABS: ALBUMIN 3.3 g/dL (3.4-5.0)
--- NOTE | 2019-06-09 02:00 | NUR ---
RESTING COMFORTABLY IN NO ACUTE DISTRESS.
--- NOTE | 2019-06-09 03:03 | NUR ---
NORCO I TAB PO ADM FOR SHARP EPIGASTRIC PAIN.
[2019-06-09 04:03] VITALS: BP 174/91
[2019-06-09] MEDS: HYDROmorphone 1 MG/ML AMP IVP PRN ×6 (04:07→22:08)
--- NOTE | 2019-06-09 04:07 | NUR ---
DILAUDID IV ADM FOR SEVERE EPIGASTRIC PAIN.
[2019-06-09] MEDS: ONDANSETRON 4 MG/2 ML VIAL IVP PRN ×3 (04:14→22:14)
[2019-06-09] MEDS: DEXT 5% /NACL 0.9% 1,000 ML IV SCH ×2 (04:18→16:16)
--- NOTE | 2019-06-09 04:47 | NUR ---
EPIGASTRIC PAIN STILL PERSIST POST IV DILAUDID BUT DECREASED TO SCALE 4/10
--- NOTE | 2019-06-09 06:45 | NUR ---
ENDORSED IN NO ACUTE DISTRESS.IVF INFUSING WELL.SAFETY MAINTAINED. NO S/S OF HYPO/HYPERGLYCEMIA NOTED.
[2019-06-09] MEDS: BLOOD GLUCOSE MONITORING 1 DEV DEV FS SCH ×4 (06:58→21:00)
[2019-06-09] MEDS: INSULIN LISPRO SLIDING SCALE 100 UNITS/ML VIAL SUBQ PRN ×4 (07:01→22:13)
--- NOTE | 2019-06-09 07:25 | NUR ---
RECEIVED REPORT FROM ASSISTANT PROFESSOR IN FAMILY STUDIES NURSE AT BEDSIDE FOR CONTINUITY OF CARE. PATIENT AOX4, DENIES PAIN, IV SITE INTACT, ASYMPTOMATIC, INFUSING IVF WELL. RESPIRATIONS EVEN AND UNLABORED ON ROOM AIR. PT AMBULATES. UPDATED BOARD. UPDATED PATIENT WITH PLAN OF CARE. SHE VERBALIZED UNDERSTANDING. CALL LIGHT WITHIN REACH, WILL CONTINUE TO MONITOR PATIENT.
[2019-06-09 08:00] VITALS: BP 188/107
[2019-06-09] MEDS: buPROPion 100 MG TAB PO SCH ×2 (08:20→21:15)
[2019-06-09] MEDS: CITALOPRAM 20 MG TAB PO SCH (08:20)
[2019-06-09 09:00] VITALS: BP 160/98
[2019-06-09] MEDS ORDERED: traZODone 50 MG TAB PO SCH (09:00)
[2019-06-09] MEDS ORDERED: cloNIDine 0.1 MG TAB PO PRN (11:15)
[2019-06-09 14:04] LABS: BASOPHILS % (AUTO) 0.4 % (0.0-2.0); EOSINOPHILS # (AUTO) 0.1 K/uL (0-0.4); EOSINOPHILS % (AUTO) 0.8 % (0.0-4.0); HEMOGLOBIN 11.4 g/dL (12.0-16.0); LYMPHOCYTES # (AUTO) 0.9 K/uL (2.5-16.5); LYMPHOCYTES % (AUTO) 8.3 % (20.5-51.1); MEAN CORPUSCULAR HEMOGLOBIN 28 pg (27-31); MEAN CORPUSCULAR HGB CONC 33 g/dL (33-37); MEAN CORPUSCULAR VOLUME 86.5 fL (80-94); MONOCYTES # (AUTO) 0.5 K/uL (0.8-1.0); MONOCYTES % (AUTO) 4.7 % (1.7-9.3); NEUTROPHILS # (AUTO) 8.8 K/uL (1.8-7.7); NEUTROPHILS % (AUTO) 85.8 % (42.2-75.2); PLATELET COUNT (AUTO) 97 K/uL (140-450); RED BLOOD CELL COUNT(AUTO) 4.04 MIL/uL (4.20-5.40); RED CELL DISTRIBUTION WIDTH 15.3 % (11.6-13.7); WHITE BLOOD COUNT (AUTO) 10.3 K/uL (4.8-10.8)
--- NOTE | 2019-06-09 15:17 | NUR ---
PT MEDICATION WITH PRN PAIN MEDICATION FOR C/O ABD PAIN. PT TOLERATED IT WELL. PT HAS NO COMPLAINTS AT THIS TIME. CALL LIGHT WITHIN REACH, WILL CONTINUE TO MONITOR PATIENT.
[2019-06-09] MEDS: CALCIUM CARBONATE 500 MG TAB.CHEW PO SCH ×2 (15:24→21:14)
[2019-06-09] MEDS: FENOFIBRATE 48 MG TAB PO SCH (15:25)
[2019-06-09 16:20] VITALS: BP 134/87
--- NOTE | 2019-06-09 18:25 | NUR ---
PT MEDICATION WITH PRN PAIN MEDICATION FOR C/O ABD PAIN. PT TOLERATED IT WELL. PT HAS NO COMPLAINTS AT THIS TIME. CALL LIGHT WITHIN REACH, WILL CONTINUE TO MONITOR PATIENT AND ENDORSE TO RAMP SERVICE AGENT NURSE.
--- NOTE | 2019-06-09 19:05 | NUR ---
REPORT GIVEN TO EXAM PROCTOR NURSE AT BEDSIDE FOR CONTINUITY OF CARE. PATIENT IN STABLE CONDITION.
--- NOTE | 2019-06-09 19:20 | NUR ---
RECEIVED FROM AM RN IN BED SITTING UP . WITH FEMALE VISITOR. INDEPENDENT. RE-ORIENTED TO CALL LIGHT USE FOR ANY HELP SHE MAY NEED AND IF IN PAIN. "OK" ABLE TO VERBALIZE NEEDS WELL. DX. OF ABDOMINAL PAIN. IVF SITE INTACT AND NO INFILTRATION NOTED. A/O X 4. ROM X 4. CLEAR SPEECH.
[2019-06-09] MEDS: traZODone 50 MG TAB PO SCH (21:14)
[2019-06-09] MEDS: FAMOTIDINE 20 MG/2 ML VIAL IV SCH (21:15)
[2019-06-09 22:03] VITALS: BP 137/89
--- NOTE | 2019-06-09 22:20 | NUR ---
REQUESTED FOR PAIN RELIEVER . MEDICATED WITH DILAUDID 1.5 MG IVP ORDERED. A/O X 4. ABLE TO VERBALIZE NEEDS WELL. MEDICATED WITH ZOFRAN IVP FOR NAUSEA. VOMITED GREENISH VOMITUS. CALL LIGHT WITH IN REACH. REMINDED TO NOT STAND IMMEDIATELY RT PAIN RELIEVER EFFECT. STATED "I KNOW". ROM X 4. BLOOD SUGAR PER FINGERSTICK 188 MG/DL PER FINGERSTICK . ADMINISTERED HUMALOG 2 UNITS. PT. NO FURTHER COMPLAINTS. ENCOURAGED TO SLEEP AND RELAX.
[2019-06-10] VITALS: BP 110/82
--- NOTE | 2019-06-10 00:10 | NUR ---
SLEEPING AT THIS TIME. NO RESTLESSNESS NOTED. CALL LIGHT WITH IN REACH.
--- NOTE | 2019-06-10 02:58 | NUR ---
SLEEPING WELL. CALL LIGHT WITH IN REACH.
[2019-06-10 03:13] VITALS: BP 133/99
[2019-06-10] MEDS: ONDANSETRON 4 MG/2 ML VIAL IVP PRN ×4 (03:22→20:29)
[2019-06-10] MEDS: HYDROmorphone 1 MG/ML AMP IVP PRN ×4 (03:23→20:30)
--- NOTE | 2019-06-10 03:30 | NUR ---
PT. MEDICATED WITH DILAUDID RT C/O ABDOMINAL PAIN. ZOFRAN ADMINISTERED REQUESTED RT NAUSEA AND VOMITING. ABLE TO VERBALIZE NEEDS WELL.
[2019-06-10] MEDS: DEXT 5% /NACL 0.9% 1,000 ML IV SCH ×2 (05:16→18:53)
[2019-06-10] MEDS: INSULIN LISPRO SLIDING SCALE 100 UNITS/ML VIAL SUBQ PRN ×3 (05:52→22:04)
[2019-06-10] MEDS: BLOOD GLUCOSE MONITORING 1 DEV DEV FS SCH ×4 (05:52→21:00)
[2019-06-10 06:33] LABS: HEMATOCRIT 37.2 % (36-48)
--- NOTE | 2019-06-10 06:43 | NUR ---
PT. BACK TO SLEEP. NO COMPLAINTS. CALL LIGHT WITH IN REACH.
[2019-06-10 06:49] LABS: MEAN CORPUSCULAR HEMOGLOBIN 29 pg (27-31); MEAN CORPUSCULAR HGB CONC 35 g/dL (33-37); MEAN CORPUSCULAR VOLUME 83.6 fL (80-94); PLATELET COUNT (AUTO) 270 K/uL (140-450); RED BLOOD CELL COUNT(AUTO) 4.45 MIL/uL (4.20-5.40); RED CELL DISTRIBUTION WIDTH 15.8 % (11.6-13.7); WHITE BLOOD COUNT (AUTO) 11.8 K/uL (4.8-10.8)
--- NOTE | 2019-06-10 07:23 | NUR ---
RECEIVED BEDSIDE REPORT FROM OIL FIELD WORKER NURSE. PT IS AWAKE AND ALERT, NO S/S OF ACUTE DISTRESS NOTED, ON ROOM AIR, SKIN INTACT. IV SITE L HAND 22 G, INFUSING D5NS 100 ML/HR. CALL LIGHT IS WITHIN REACH. WILL CONTINUE TO MONITOR.
[2019-06-10 08:00] VITALS: BP 138/87
--- NOTE | 2019-06-10 08:52 | NUR ---
PATIENT HAS BEEN SCREENED AND CATEGORIZED MODERATE NUTRITION RISK. PATIENT WILL BE SEEN WITHIN 3-5 DAYS OF ADMISSION. 06/11/19 06/13/[address]
[2019-06-10] MEDS: CALCIUM CARBONATE 500 MG TAB.CHEW PO SCH ×2 (09:00→20:29)
[2019-06-10] MEDS: buPROPion 100 MG TAB PO SCH ×3 (09:00→20:45)
[2019-06-10] MEDS: CITALOPRAM 20 MG TAB PO SCH (09:00)
[2019-06-10] MEDS: ENOXAPARIN 30 MG/0.3 ML SYR SUBQ SCH (09:31)
[2019-06-10] MEDS: FAMOTIDINE 20 MG/2 ML VIAL IV SCH ×2 (09:50→20:29)
[2019-06-10] MEDS: FENOFIBRATE 48 MG TAB PO SCH (09:59)
--- NOTE | 2019-06-10 10:03 | NUR ---
AM MEDS ADMINISTERED, PT TOLERATED WELL. PT DECLINED THE CELEXA AND WELLBUTRIN, STATES SHE DOES NOT TAKE THEM ANYMORE. Addendum: 06/10/19 at 1004 by Ava Kaminski RN ALSO ADMINISTERED A PRN DOSE OF DILAUDID AND ZOFRAN FOR ABD PAIN 12/11 AND NAUSEA. PT HAS HAD 2 EPISODES OF EMESIS THIS AM.
[2019-06-10] MEDS ORDERED: FISH OIL 1000MG PO SCH (12:00)
--- NOTE | 2019-06-10 14:03 | NUR ---
PT IS ASLEEP COMFORTABLY. NO S/S OF ACUTE DISTRESS NOTED.
--- NOTE | 2019-06-10 14:30 | NUR ---
PT'S IV HAS INFILTRATED. WILL ATTEMPT A NEW IV INSERT. Addendum: 06/10/19 at 1701 by Ava Kaminski RN NEW IV CHRISTY, Amelie Baumann G.
[2019-06-10 15:28] LABS: EOSINOPHILS % (MANUAL) 2 % (0-4); LYMPHOCYTES % (MANUAL) 15 % (20-46); MONOCYTES % (MANUAL) 2 % (5-12)
[2019-06-10 16:00] VITALS: BP 145/78
--- NOTE | 2019-06-10 17:30 | NUR ---
CALLED DR ERICKSON TO REPORT THAT PT'S LIPASE INCREASED FROM [phone] ERICKSON, PT IS TO BE KEPT NPO.
--- NOTE | 2019-06-10 19:20 | NUR ---
ENDORSED PT TO MANAGER ADVERTISING NURSE IN STABLE CONDITION
--- NOTE | 2019-06-10 19:25 | NUR ---
RECEIVED FROM AM RN IN BED AWAKE AND ALERT. PT. ABLE TO VERBALIZE NEEDS WELL. NO COMPLAINTS DONE AT THIS TIME. DX. ABDOMINAL PAIN. CALL LIGHT WITH IN REACH. NEW IVF SITE INTACT AND INFUSING WELL WITH D5NS AT 75 ML/H.
[2019-06-10 20:26] VITALS: BP 138/86
[2019-06-10] MEDS: traZODone 50 MG TAB PO SCH (20:30)
--- NOTE | 2019-06-10 20:32 | NUR ---
PT. MEDICATED WITH PAIN RELIEVER REQUESTED. ABLE TO VERBALIZE NEEDS WELL. NO SOB. ROM X 4. SEEN PT. WALK TOWARDS RESTROOM INSIDE ROOM TO URINATE. A/O X 4. DX. ABDOMINAL PAIN. NPO EXCEPT MEDICATIONS.
--- NOTE | 2019-06-10 20:45 | NUR ---
PT. REFUSED TO TAKE WELLBUTRIN ORDERED. STATED "I HAVE NOT TAKEN THAT FOR A LONG TIME. IT WAS STOPPED. " A/O X 4.
--- NOTE | 2019-06-10 23:00 | NUR ---
PT. SLEEPING AT THIS TIME. CALL LIGHT WITH IN REACH.
[2019-06-11] VITALS: BP 110/74
[2019-06-11 04:45] VITALS: BP 132/98
[2019-06-11] MEDS: ONDANSETRON 4 MG/2 ML VIAL IVP PRN ×4 (04:51→21:22)
[2019-06-11] MEDS: HYDROmorphone 1 MG/ML AMP IVP PRN ×5 (04:52→21:21)
[2019-06-11] MEDS: BLOOD GLUCOSE MONITORING 1 DEV DEV FS SCH ×4 (05:04→21:24)
[2019-06-11] MEDS: INSULIN LISPRO SLIDING SCALE 100 UNITS/ML VIAL SUBQ PRN ×4 (05:06→21:44)
--- NOTE | 2019-06-11 05:50 | NUR ---
ANOTHER DOSE OF DILAUDID IVP 1.5 MG ADMINISTERED RT PREVIOUS ONE WAS NOT FULLY ADMINISTERED RT IVF SITE ACCIDENTALLY DISCONTINUED BY PT. ADMINISTRATION OF THE SECOND DILAUDID DOSE WAS WITNESSED BY CHARGE NURSE AND INFORMED CLINICAL DOCUMENTATION CLERK . NEW IVF SITE INSERTED TO RIGHT AC #22. TOLERATED WELL. GOOD BLOOD RETURN.
[2019-06-11 06:17] LABS: HEMATOCRIT 35.3 % (36-48); HEMOGLOBIN 11.8 g/dL (12.0-16.0); MEAN CORPUSCULAR HEMOGLOBIN 28 pg (27-31); MEAN CORPUSCULAR HGB CONC 34 g/dL (33-37); MEAN CORPUSCULAR VOLUME 83.3 fL (80-94); PLATELET COUNT (AUTO) 317 K/uL (140-450); RED BLOOD CELL COUNT(AUTO) 4.24 MIL/uL (4.20-5.40); RED CELL DISTRIBUTION WIDTH 16.1 % (11.6-13.7); WHITE BLOOD COUNT (AUTO) 15.3 K/uL (4.8-10.8)
--- NOTE | 2019-06-11 06:18 | NUR ---
PT. AWAKE AND TALKING TO ROOM MATE. NO FURTHER COMPLAINTS OF PAIN. ABLE TO VERBALIZE NEEDS WELL. CALL LIGHT WITH IN REACH. PT. STILL WITH NAUSEA AND VOMITING.
[2019-06-11 06:38] LABS: ALBUMIN 2.3 g/dL (3.4-5.0); ANION GAP 13.1 (8-16); CARBON DIOXIDE 26.9 mmol/L (21-32); CREATININE 1.1 mg/dL (0.6-1.3); MAGNESIUM 1.7 mg/dL (1.8-2.4); PHOSPHORUS 1.5 mg/dL (2.5-4.9); TOTAL BILIRUBIN 0.8 mg/dL (0.0-1.0)
[2019-06-11 07:05] LABS: EOSINOPHILS % (MANUAL) 4 % (0-4); LYMPHOCYTES % (MANUAL) 15 % (20-46); MONOCYTES % (MANUAL) 10 % (5-12)
--- NOTE | 2019-06-11 07:10 | NUR ---
Received bedside report from pm nurse Dulce. Pt resting in bed, awake, verbally responsive, FLACC 0, no signs of distress. Right AC IV intact with ongoing D5NS @ 75ml/h. Call light within reach.
[2019-06-11] MEDS: DEXT 5% /NACL 0.9% 1,000 ML IV SCH ×2 (07:56→21:16)
[2019-06-11 08:00] VITALS: BP 98/60
[2019-06-11] MEDS: buPROPion 100 MG TAB PO SCH ×2 (09:00→21:00)
[2019-06-11] MEDS: CITALOPRAM 20 MG TAB PO SCH (09:00)
[2019-06-11] MEDS: FENOFIBRATE 48 MG TAB PO SCH (09:27)
[2019-06-11] MEDS: CALCIUM CARBONATE 500 MG TAB.CHEW PO SCH ×2 (09:27→21:11)
[2019-06-11] MEDS: FAMOTIDINE 20 MG/2 ML VIAL IV SCH ×2 (09:27→21:12)
[2019-06-11] MEDS: FISH OIL 1000 MG PO SCH (09:28)
[2019-06-11] MEDS: ENOXAPARIN 30 MG/0.3 ML SYR SUBQ SCH (09:30)
--- NOTE | 2019-06-11 10:45 | NUR ---
Pt c/o nausea and abd pain. Zofran and Dilaudid IVP administered. Emesis bag provided, pt sitting at edge of bed. Pt's mother at bedside.
--- NOTE | 2019-06-11 11:45 | NUR ---
No c/o nausea at this time. No vomiting episode. Pt states she "feels better".
[2019-06-11] MEDS ORDERED: MAGNESIUM OXIDE 400 MG TAB PO SCH (12:30)
[2019-06-11] MEDS ORDERED: POTASSIUM CHLORIDE 10 MEQ TABER PO SCH (12:30)
[2019-06-11 16:00] VITALS: BP 114/60
--- NOTE | 2019-06-11 19:30 | NUR ---
RECEIVED FROM AM RN IN BED SLEEPING. CALL LIGHT WITH IN REACH. NO RESTLESSNESS. NEW IVF SITE INSERTED BY AM RN TO RIGHT HAND. NO INFILTRATION NOTED. WILL CONTINUE WITH CARE FOR THE NIGHT.
[2019-06-11 21:00] VITALS: BP 134/82
[2019-06-11] MEDS: traZODone 50 MG TAB PO SCH (21:11)
--- NOTE | 2019-06-11 21:54 | NUR ---
PT. SEEN COME OUT FROM RESTROOM. STATED THAT SHE HAD BM . "I AM GOING BACK TO SLEEP NOW" ABLE TO VERBALIZE NEEDS WELL. CALL LIGHT WITHIN REACH. A/O X 4. ROM X 4.
[2019-06-12] VITALS: BP 131/69
--- NOTE | 2019-06-12 00:55 | NUR ---
SLEEPING WELL. CALL LIGHT WITH IN REACH/ NO RESTLESSNESS. IVF SITE INTACT.
--- NOTE | 2019-06-12 02:24 | NUR ---
PT. SLEEPING AT THIS TIME . CALL LIGHT WITH IN REACH. NO SOB.
--- NOTE | 2019-06-12 04:48 | NUR ---
SLEEPING AT THIS TIME. NO SOB. INDEPENDENT WHEN SHE GOES RESTROOM. NO NOTED VOMITING AT THIS TIME SINCE START OF SHIFT.
[2019-06-12] MEDS: INSULIN LISPRO SLIDING SCALE 100 UNITS/ML VIAL SUBQ PRN (05:09)
[2019-06-12] MEDS: BLOOD GLUCOSE MONITORING 1 DEV DEV FS SCH ×3 (05:09→16:58)
--- NOTE | 2019-06-12 05:50 | NUR ---
AWAKE AND ALERT AT THIS TIME. LAB TECHNICIANS IN HERE TO COLLECT BLOOD SPECIMEN. BLOOD SUGAR CHECK PER FINGERSTICK 153. NO COMPLAINTS AT THIS TIME. NO NAUSEA OR VOMITING SINCE THE START OF MANAGER MACHINE.
--- NOTE | 2019-06-12 07:10 | NUR ---
RECEIVED BEDSIDE REPORT FROM APPELLATE COURT CLERK NURSE RODRI FOR CONTINUITY OF CARE. PT AWAKE AND RESTING ON BED AT THIS TIME. PT IS AAOX4, ABLE TO MAKE NEED KNOWN AND FOLLOW COMMANDS. RESPIRATION EVEN AND UNLABORED ON RA. DENIED PAIN, SOB AND DIZZINESS. NO SIGNS OF DISTRESS NOTED. IV ON R HAND 22, CLEAN AND INTACT, INFUSING PER MD ORDER. SKIN CLEAN AND DRY. PT IS CONTINENT AND AMBULATE. DISCUSSED PLAN OF CARE WITH PT AND PT VERBALIZED UNDERSTANDING. SAFETY MEASURES IN PLACE. BED IN LOW POSITION AND CALL LIGHT WITHIN REACH. INSTRUCTED PT TO USE THE CALL LIGHT FOR ANY ASSISTANCE AND PT AWARE.
[2019-06-12 07:11] LABS: BASOPHILS # (AUTO) 0.1 K/uL (0.00-0.22); BASOPHILS % (AUTO) 0.7 % (0.0-2.0); EOSINOPHILS # (AUTO) 0.9 K/uL (0-0.4); EOSINOPHILS % (AUTO) 9.6 % (0.0-4.0); HEMATOCRIT 29.6 % (36-48); HEMOGLOBIN 9.9 g/dL (12.0-16.0); LYMPHOCYTES # (AUTO) 1.9 K/uL (2.5-16.5); LYMPHOCYTES % (AUTO) 20.1 % (20.5-51.1); MEAN CORPUSCULAR HEMOGLOBIN 28 pg (27-31); MEAN CORPUSCULAR HGB CONC 33 g/dL (33-37); MEAN CORPUSCULAR VOLUME 83.1 fL (80-94); MONOCYTES # (AUTO) 0.5 K/uL (0.8-1.0); MONOCYTES % (AUTO) 4.8 % (1.7-9.3); NEUTROPHILS # (AUTO) 6.2 K/uL (1.8-7.7); NEUTROPHILS % (AUTO) 64.8 % (42.2-75.2); PLATELET COUNT (AUTO) 206 K/uL (140-450); RED BLOOD CELL COUNT(AUTO) 3.56 MIL/uL (4.20-5.40); RED CELL DISTRIBUTION WIDTH 15.8 % (11.6-13.7); WHITE BLOOD COUNT (AUTO) 9.6 K/uL (4.8-10.8)
[2019-06-12 07:38] LABS: ALBUMIN 2.1 g/dL (3.4-5.0); ANION GAP 10.7 (8-16); CARBON DIOXIDE 26.6 mmol/L (21-32); CREATININE 0.7 mg/dL (0.6-1.3); PHOSPHORUS 1.2 mg/dL (2.5-4.9); POTASSIUM 3.3 mmol/L (3.5-5.1); TOTAL BILIRUBIN 0.6 mg/dL (0.0-1.0)
[2019-06-12] MEDS: HYDROmorphone 1 MG/ML AMP IVP PRN ×3 (07:42→17:08)
--- NOTE | 2019-06-12 07:42 | NUR ---
PATIENT COMPLAINED OF 8/10 PAIN ON HER ABDOMINAL AREA, REPOSITIONED AND TURN PATIENT ON HIS R SIDE, PT SAID "I CAN STILL FEEL THE PAIN AND ITS VERY BAD." MEDICATED WITH PRN PAIN MED, MED EDUCATION PROVIDED AND PT SAID OK. PT IS RESTING ON BED AT THIS TIME. NO SIGNS OF DISTRESS NOTED. SAFETY MEASURES IN PLACE. INSTRUCTED PT TO UES THE CALL LIGHT FOR ANY ASSISTANCE AND PT AWARE.
[2019-06-12] MEDS ORDERED: HYDROmorphone 1 MG/ML AMP ONE (07:43)
[2019-06-12 08:00] VITALS: BP 153/82
[2019-06-12] MEDS: buPROPion 100 MG TAB PO SCH (09:00)
[2019-06-12] MEDS: CITALOPRAM 20 MG TAB PO SCH (09:00)
[2019-06-12] MEDS: FENOFIBRATE 48 MG TAB PO SCH (09:58)
[2019-06-12] MEDS: FAMOTIDINE 20 MG/2 ML VIAL IV SCH (09:58)
[2019-06-12] MEDS: CALCIUM CARBONATE 500 MG TAB.CHEW PO SCH (09:58)
[2019-06-12] MEDS: FISH OIL 1000 MG PO SCH (10:00)
[2019-06-12] MEDS: ENOXAPARIN 30 MG/0.3 ML SYR SUBQ SCH (10:01)
--- NOTE | 2019-06-12 10:01 | NUR ---
ADMINISTERED AM SCHEDULED MEDS PER MD ORDER, PT REFUSED BUPROPIN AND CITALOPRAM AND STATED "NO, I DON'T TAKE THOSE MEDS FOR A YEAR. I DON'T NEED THEM." MEDS EDUCATION PROVIDED AND PT INSISTED NOT WANTING THEM. ADMINISTERED THE REST OF MEDS, MEDS EDUCATION PROVIDED AND PT TOLERATED WELL. PT AWAKE AND TALKING ON HER PHONE. NO SIGNS OF DISTRESS NOTED. SAFETY MEASURES IN PLACE. INSTRUCTED PT TO USE THE CALL LIGHT FOR ANY ASSISTANCE AND PT AWARE.
[2019-06-12] MEDS: DEXT 5% /NACL 0.9% 1,000 ML IV SCH (10:48)
[2019-06-12] MEDS ORDERED: OMEP20TC12 PO (11:40)
--- NOTE | 2019-06-12 11:49 | NUR ---
PER DR ROBIN, ADVANCE PT TO REGULAR DIET, IF PT CAN TOLERATE WITHOUT VOMITING AND NAUSEA, PT CINDY Holliday DC THIS EVENING. REPEATED AND CONFIRMED ORDER WITH .
--- NOTE | 2019-06-12 12:05 | NUR ---
CHECKED BLOOD GLUCOSE AND RECEIVED 146, NO COVERAGE NEEDED. PT COMPLAINED SHE HAS 8/10 ABDOMINAL PAIN, LIKE SHARP AND SEVERE, MEDICATED WITH PRN PAIN MED, MED EDUCATION PROVIDED. EXPLAINED TO PT THAT DR ERICKSON HAS ADVANCE HER DIET AND IF TOLERATE WELL, SHE MAY DC HOME. PER PT, HER FAMILY IS ABLE TO FURNITURE DECALS INSPECTOR AROUND 5 PM JORGE. PT AWAKE AND TALKING TO VISITOR AT BEDSIDE. NO SIGNS OF DISTRESS NOTED. SAFETY MEASURES IN PLACE.
--- NOTE | 2019-06-12 12:19 | NUR ---
INFORMED DR ERICKSON THAT PT'S POTASSIUM IS 3.3 FROM AM LAB. RECEIVED VERBAL ORDER FOR K-DUR 40 MEQ PO ONCE, REPEATED AND CONFIRMED ORDER WITH DR ERICKSON.
[2019-06-12] MEDS ORDERED: POTASSIUM CHLORIDE 10 MEQ TABER PO SCH (13:00)
[2019-06-12] MEDS: ONDANSETRON 4 MG/2 ML VIAL IVP PRN (13:21)
--- NOTE | 2019-06-12 13:21 | NUR ---
ATTENDED TO PT'S CALL LIGHT, PT COMPLAINED NAUSEA AFTER DRINKING SOME SOUP. MEDICATED WITH PRN ZOFRAN AND ADMINISTERED K-DUR, MEDS EDUCATION PROVIDED AND PT VERBALIZED UNDERSTANDING. PT AWAKE AND RESTING ON BED AT THIS TIME. NO SIGNS OF DISTRESS NOTED. SAFETY MEASURES IN PLACE.
--- NOTE | 2019-06-12 15:25 | NUR ---
PT IS RESTING ON BED. NO SIGNS OF DISTRESS NOTED. SAFETY MEASURES IN PLACE. INSTRUCTED PT TO USE THE CALL LIGHT FOR ANY ASSISTANCE AND PT AWARE.
[2019-06-12 16:00] VITALS: BP 136/91
--- NOTE | 2019-06-12 16:59 | NUR ---
CHECKED BLOOD GLUCOSE AND RECEIVED 138, NO COVERAGE NEEDED. PT COMPLAINED SHE HAS 7/10 ABDOMINAL PAIN, WILL MEDICATED WITH PRN PAIN MED. PT AWAKE AND RESTING ON BED. NO SIGNS OF DISTRESS NOTED. SAFETY MEASURES IN PLACE.
--- NOTE | 2019-06-12 17:09 | NUR ---
MEDICATED PT FOR 10/10 PAIN, MED EDUCATION PROVIDED. ADMINISTERED ROCEPHIN VIA IVPB DUE TO PT SAID, " MY FAMILY WILL BE HERE TO PICK ME AFTER DINNER, I CAN GET MY ANTIBIOTIC EARLIER," MED EDUCATION PROVIDED. PT AWAKE AND RESTING ON BED AT THIS TIME. NO SIGNS OF DISTRESS NOTED. SAFETY MEASURES IN PLACE.
--- NOTE | 2019-06-12 18:15 | NUR ---
FAMILY MEMBERS ARE BY BEDSIDE, PT IS EATING DINNER. NO SIGNS OF DISTRESS NOTED.
--- NOTE | 2019-06-12 18:45 | NUR ---
PT IS CHANGING INTO HER OWN CLOTHES AT THIS TIME. FAMILY MEMBERS ARE BY BEDSIDE. NO SIGNS OF DISTRESS NOTED.
--- NOTE | 2019-06-12 18:57 | NUR ---
DISCHARGE INSTRUCTED PROVIDED TO PT AT BEDSIDE. EDUCATED PT ON FOLLOW UP WITH MD, SEEK MEDICAL HELPS IN CASE OF MEDICAL EMERGENCY, DISEASE MANAGEMENT, MEDICATION REGIMENS, SIDE EFFECTS, DIET AND LIFT STYLE. ANSWERED ALL PT'S QUESTIONS AND PT SAID OK. PT REFUSED VACCINATION AND EDUCATION PROVIDED. REMOVED IV AND CANNULA INTACT AND COMPLETED. REMOVED ALL ARM BANDS. PT AWARE THAT HER PRESCRIPTION SENT TO HER PREFERRED PHARMACY [facility]. PT TOOK ALL HER BELONGINGS HOME. PT IS GOING TO DC HOME ACCOMPANIED WITH FAMILY MEMBER, PT IS IN STABLE CONDITION.
--- NOTE | 2019-06-13 15:18 | NUR ---
PCP Appointment: DIRK contacted Natalee from Dr. Valentina Barragan's office [phone]. DIRK arranged for hospital follow up to be on 06/16/2019 at 1000 @ [address] [place] [address]. Patient was notified.
== END 2019-06-12 18:55 | disposition home or self-care (01) | DRG 282 ==
LOC: MED 12:50 → MTU 17:00 → MMU 17:03 → MTU 17:06
PROVIDERS: ADMIT Internal Medicine Pulmonary Disease; ATTEND Internal Medicine Pulmonary Disease
DX: K85.90 Acute pancreatitis without necrosis or infection, unspecified (principal); Z68.41 Body mass index [BMI] 40.0-44.9, adult; D64.9 Anemia, unspecified; E11.9 Type 2 diabetes mellitus without complications; E78.1 Pure hyperglyceridemia; E78.5 Hyperlipidemia, unspecified; E66.9 Obesity, unspecified; E86.9 Volume depletion, unspecified; I10 Essential (primary) hypertension; F32.9 Major depressive disorder, single episode, unspecified; F41.9 Anxiety disorder, unspecified; J45.909 Unspecified asthma, uncomplicated; Z90.49 Acquired absence of other specified parts of digestive tract; Z79.84 Long term (current) use of oral hypoglycemic drugs; Z79.899 Other long term (current) drug therapy
CPT/HCPCS: 36415; 76700; 80053; 80061; 80305; 81001; 82948; 83036; 83690; 83735; 84100; 84703; 85025; 87081; 87086; 96365; 96375; 99285; J0696; J1170; J1650; J2001; J2405; J3010; J3490; J7042; J7060; Q0092

== ENCOUNTER 2021-06-07 15:33 | Emergency (ER) | payer OTHER ==
[~2021-06-07] VITALS: Ht 165.1 cm; Wt 113.4 kg
[~2021-06-07 15:33] MED LIST changes: +OMEP-278 PO
[2021-06-07 15:37] VITALS: BP 130/103
--- NOTE | 2021-06-07 16:16 | NUR ---
PT AMBULATED TO ER BED 3
--- NOTE | 2021-06-07 16:25 | NUR ---
45 y/o female ambulated to bed 3, c/o epigastric pain radiates to low back + nausea, diarrhea and fatigue for 1 week. denies constipation or vomiting. pmh: asthma, dm2, pancreatitis, htn nka med: compliant with meds
--- NOTE | 2021-06-07 16:27 | NUR ---
lab at bedside to draw blood
[2021-06-07 16:39] LABS: BASOPHILS # (AUTO) 0.1 K/uL (0.00-0.22); BASOPHILS % (AUTO) 1.1 % (0.0-2.0); EOSINOPHILS # (AUTO) 0.5 K/uL (0-0.4); EOSINOPHILS % (AUTO) 5.5 % (0.0-4.0); HEMATOCRIT 38.6 % (36-48); LYMPHOCYTES # (AUTO) 3.4 K/uL (2.5-16.5); LYMPHOCYTES % (AUTO) 37.4 % (20.5-51.1); MEAN CORPUSCULAR HEMOGLOBIN 28 pg (27-31); MEAN CORPUSCULAR HGB CONC 34 g/dL (33-37); MEAN CORPUSCULAR VOLUME 81.8 fL (80-94); MONOCYTES # (AUTO) 0.4 K/uL (0.8-1.0); MONOCYTES % (AUTO) 4.4 % (1.7-9.3); NEUTROPHILS # (AUTO) 4.7 K/uL (1.8-7.7); NEUTROPHILS % (AUTO) 51.6 % (42.2-75.2); PLATELET COUNT (AUTO) 264 K/uL (140-450); RED BLOOD CELL COUNT(AUTO) 4.72 MIL/uL (4.20-5.40); RED CELL DISTRIBUTION WIDTH 14.4 % (11.6-13.7); WHITE BLOOD COUNT (AUTO) 9.1 K/uL (4.8-10.8)
[2021-06-07 16:58] LABS: ALBUMIN 3.3 g/dL (3.4-5.0); ANION GAP 12.8 (8-16); CREATININE 0.8 mg/dL (0.6-1.3); MAGNESIUM 1.8 mg/dL (1.8-2.4); POTASSIUM 3.8 mmol/L (3.5-5.1); TOTAL BILIRUBIN 0.5 mg/dL (0.0-1.0)
--- NOTE | 2021-06-07 17:28 | NUR ---
Note undone in EDM - 06/07/21 at 1854 by ARMINDA Patient discharged with v/s stable. Written and verbal after care instructions given and explained. Patient alert, oriented and verbalized understanding of instructions. Ambulatory with steady gait. All questions addressed prior to discharge. ID band removed. Patient advised to follow up with PMD. Rx of norco 5-325 given. Patient educated on indication of medication including possible reaction and side effects. Opportunity to ask questions provided and answered.
[2021-06-07] MEDS: KETOROLAC 30 MG/ML VIAL IM ONE (18:17)
[2021-06-07] MEDS: HYDROcodone/APAP 5/325 MG 1 TAB TAB PO ONE (18:18)
[2021-06-07] MEDS: ONDANSETRON 4 MG ODT PO ONE (18:18)
[2021-06-07 18:44] VITALS: BP 112/62
--- NOTE | 2021-06-07 18:44 | NUR ---
Patient discharged with v/s stable. Written and verbal after care instructions given and explained. Patient verbalized understanding. Ambulatory with steady gait. All questions addressed prior to discharge. Advised to follow up with PMD.
== END 2021-06-07 18:44 | disposition home or self-care (01) ==
LOC: MED 15:33
DX: R10.13 Epigastric pain (principal); R11.2 Nausea with vomiting, unspecified; R14.0 Abdominal distension (gaseous); J45.909 Unspecified asthma, uncomplicated; E11.9 Type 2 diabetes mellitus without complications; F12.10 Cannabis abuse, uncomplicated; Z79.899 Other long term (current) drug therapy
CPT/HCPCS: 36415; 80053; 81002; 81025; 83690; 83735; 85025; 99285; J1885; Q0162

== ENCOUNTER 2021-09-27 13:21 | Emergency (ER) | payer OTHER ==
[~2021-09-27] VITALS: Ht 165.1 cm; Wt 117.9 kg
[2021-09-27 14:24] LABS: BASOPHILS # (AUTO) 0.1 K/uL (0.00-0.22); EOSINOPHILS # (AUTO) 0.6 K/uL (0-0.4); EOSINOPHILS % (AUTO) 6.7 % (0.0-4.0); HEMATOCRIT 38.8 % (36-48); HEMOGLOBIN 13.1 g/dL (12.0-16.0); LYMPHOCYTES # (AUTO) 3.2 K/uL (2.5-16.5); MEAN CORPUSCULAR HEMOGLOBIN 27 pg (27-31); MEAN CORPUSCULAR HGB CONC 34 g/dL (33-37); MEAN CORPUSCULAR VOLUME 80.6 fL (80-94); MONOCYTES # (AUTO) 0.4 K/uL (0.8-1.0); MONOCYTES % (AUTO) 4.4 % (1.7-9.3); NEUTROPHILS # (AUTO) 4.6 K/uL (1.8-7.7); NEUTROPHILS % (AUTO) 51.9 % (42.2-75.2); PLATELET COUNT (AUTO) 267 K/uL (140-450); RED BLOOD CELL COUNT(AUTO) 4.81 MIL/uL (4.20-5.40); RED CELL DISTRIBUTION WIDTH 14.8 % (11.6-13.7); WHITE BLOOD COUNT (AUTO) 8.8 K/uL (4.8-10.8)
[2021-09-27 15:15] LABS: ALBUMIN 3.5 g/dL (3.4-5.0); ANION GAP 11.7 (8-16); ASPARTATE AMINOTRANSFERASE 20 U/L (15-37); CARBON DIOXIDE 23.9 mmol/L (21-32); CHLORIDE 105 mmol/L (98-107); POTASSIUM 3.6 mmol/L (3.5-5.1); SODIUM SERUM 137 mmol/L (136-145); TOTAL BILIRUBIN 0.5 mg/dL (0.0-1.0)
--- NOTE | 2021-09-27 15:45 | NUR ---
PATIENT IN ROOM 3 AND IN GOWN. BEDSIDE MONITOR ON PATIENT
--- NOTE | 2021-09-27 15:46 | NUR ---
20G IV CATH PLACEMENT LEFT AC
[2021-09-27 15:47] LABS: CREATININE 0.7 mg/dL (0.6-1.3); GFR ARICAN-AMERICAN 115 mL/min (>90); GLUCOSE 97 mg/dL (74-106)
--- NOTE | 2021-09-27 15:54 | NUR ---
46YR OLD FEMALE BIB SELF C/O CP SOB REDDY X1 DAYS. PT A&OX4 O2SAT 99% RA. 2L 02 NC PER ORDERS. STATES NAUSEA X1 DAY DENIES V/D. PAIN LEVEL 09/10. PT ON MONITOR AT BEDSIDE. 20G IV CATH PLACED IN LEFT AC. HOB ELEVETED. NO DISTRESS NOTED. SIDE RAILS UP X2 BED AT LOWEST POSITION. NKDA HTN DM
[2021-09-27] MEDS ORDERED: ONDANSETRON 4 MG/2 ML VIAL IVP ONE (15:55)
[2021-09-27] MEDS ORDERED: KETOROLAC 30 MG/ML VIAL IVP ONE (15:55)
[2021-09-27 15:58] LABS: UREA NITROGEN, BLOOD 9 mg/dL (7-18)
[2021-09-27] MEDS ORDERED: OMEP40EC24 PO (16:43)
[2021-09-27] MEDS ORDERED: IBUP-2213 PO (16:43)
[2021-09-27] MEDS ORDERED: ONDA8TAB87 PO (16:43)
[2021-09-27] MEDS ORDERED: MORPHINE SULFATE 4 MG/ML SYR IVP ONE (16:55)
[2021-09-27] MEDS ORDERED: MORPHINE SULFATE 4 MG/ML SYR ONE (17:01)
[2021-09-27 17:19] VITALS: BP 120/45
--- NOTE | 2021-09-27 17:19 | NUR ---
Patient discharged with v/s stable. Written and verbal after care instructions given and explained. Patient alert, oriented and verbalized understanding of instructions. Ambulatory with steady gait. All questions addressed prior to discharge. ID band removed. Patient advised to follow up with PMD. Rx of IBUPROFEN OMEPRAZOLE ZOFRAN given. Patient educated on indication of medication including possible reaction and side effects. Opportunity to ask questions provided and answered.
--- NOTE | 2021-09-27 18:03 | NUR ---
Chart checked and completed. The patient's care was reviewed and supervised by Qian Pineda RN.
== END 2021-09-27 17:19 | disposition home or self-care (01) ==
LOC: MED 13:21
DX: R07.89 Other chest pain (principal); K21.9 Gastro-esophageal reflux disease without esophagitis; J45.909 Unspecified asthma, uncomplicated; E11.9 Type 2 diabetes mellitus without complications; I10 Essential (primary) hypertension; Z90.49 Acquired absence of other specified parts of digestive tract; Z79.899 Other long term (current) drug therapy; Z79.1 Long term (current) use of non-steroidal anti-inflammatories (NSAID); Z79.891 Long term (current) use of opiate analgesic
CPT/HCPCS: 36415; 71045; 80053; 81025; 84484; 85025; 93005; 96374; 96375; 99285; J1885; J2270; J2405

== ENCOUNTER 2022-03-04 13:40 | Inpatient (IN) | payer OTHER ==
[~2022-03-04] VITALS: Ht 165.1 cm; Wt 117.9 kg
[~2022-03-04 13:40] MED LIST changes: -ACET-8386 PO; +ACET-8905 PO; +IBUP-2213 PO; +OMEP40EC24 PO; +ONDA8TAB87 PO
[2022-03-04 14:41] VITALS: BP 150/69
--- NOTE | 2022-03-04 14:48 | NUR ---
Pt to lobby.
[2022-03-04] MEDS ORDERED: HYDROcodone/APAP 5/325 MG 1 TAB TAB PO ONE (15:10)
[2022-03-04] MEDS ORDERED: METOCLOPRAMIDE 10 MG TAB PO ONE (15:10)
--- NOTE | 2022-03-04 15:25 | NUR ---
Lab with blood draw in Chair Philippe
[2022-03-04 15:36] LABS: HEMATOCRIT 38.2 % (36-48); HEMOGLOBIN 13.9 g/dL (12.0-16.0); MEAN CORPUSCULAR HEMOGLOBIN 29 pg (27-31); MEAN CORPUSCULAR HGB CONC 36 g/dL (33-37); MEAN CORPUSCULAR VOLUME 79.7 fL (80-94); PLATELET COUNT (AUTO) 381 K/uL (140-450); RED CELL DISTRIBUTION WIDTH 14.8 % (11.6-13.7); WHITE BLOOD COUNT (AUTO) 17.3 K/uL (4.8-10.8)
[2022-03-04 15:40] LABS: APPEARANCE,URINE CLEAR (CLEAR); BILIRUBIN,URINE NEGATIVE (NEGATIVE); BLOOD, URINE 1+ (NEGATIVE); COLOR,URINE YELLOW (YELLOW); LEUKOCYTE ESTERASE ,URINE NEGATIVE (NEGATIVE); NITRITE, URINE NEGATIVE (NEGATIVE); UGLUCOSE 3+ (NEGATIVE)
[2022-03-04 16:01] LABS: OTHER CASTS, URINE None Seen /LPF (None Seen); WBC,URINE 0-5 /HPF (0-5)
[2022-03-04 16:12] LABS: EOSINOPHILS % (MANUAL) 3 % (0-4); LYMPHOCYTES % (MANUAL) 31 % (20-46); MONOCYTES % (MANUAL) 5 % (5-12)
--- NOTE | 2022-03-04 16:21 | NUR ---
Lab at bedside for reblood draw.
[2022-03-04] MEDS ORDERED: MORPHINE SULFATE 4 MG/ML SYR IVP ONE ×2 (17:40→21:00)
--- NOTE | 2022-03-04 17:54 | NUR ---
PT AMBULATED TO ER BED 9
--- NOTE | 2022-03-04 18:15 | NUR ---
46F presents to ED with c/o ABD pain, N/V since this morning. Pt reports pain started after eating breakfast, a constant aching like, 8/10 pain to upper ABD bilaterally. Pt reports nausea all day and 1 episode of vomiting here in ED. Pt denies fevers, chills, UTI symptoms, diarrhea, or meds. Pt changed into gown, placed on bedside monitor.
--- NOTE | 2022-03-04 19:15 | NUR ---
Pt report given to DAVID eSars. Transfer of care at this time.
--- NOTE | 2022-03-04 20:29 | NUR ---
PT TAKEN TO CT VIA W/C
[2022-03-04] MEDS ORDERED: NACL 0.9% 2,000 ML IV SCH (21:30)
[2022-03-04] MEDS ORDERED: HYDROmorphone PFS 2 MG/ML SYR IVP ONE (21:40)
[2022-03-04] MEDS ORDERED: ONDANSETRON 4 MG/2 ML VIAL IVP PRN (22:40)
[2022-03-04] MEDS ORDERED: ACETAMINOPHEN 325 MG TAB PO PRN (22:40)
[2022-03-04] MEDS ORDERED: LORazepam 2 MG/ML VIAL IVP PRN (22:40)
[2022-03-05] MEDS ORDERED: HYDROmorphone PFS 2 MG/ML SYR ONE (01:15)
[2022-03-05] MEDS ORDERED: cefTRIAXone 1,000 MG VIAL ONE (01:18)
--- NOTE | 2022-03-05 01:33 | NUR ---
PT IS RESTING WITH EQUAL RISE AND FALL OF CHEST WALL. ALL NEEDS MET AT THIS TIME. PT HAS BEEN MEDICATED FOR PAIN. VSS. BED LOCKED IN LOWEST POSITION, SIDE RAILS X2 FOR SAFETY.
[2022-03-05] MEDS: NACL 0.9% 1,000 ML IV SCH ×4 (03:04→18:40)
--- NOTE | 2022-03-05 03:14 | NUR ---
PT IS RESTING WITH EQUAL RISE AND FALL OF CHEST WALL. ALL NEEDS MET AT THIS TIME. VSS. BED LOCKED IN LOWEST POSITION, SIDE RAILS X2 FOR SAFETY.
--- NOTE | 2022-03-05 05:54 | NUR ---
PT AMBULATED TO AND BACK TO BED.
[2022-03-05] MEDS: MORPHINE SULFATE 2 MG/ML SYR IVP PRN ×2 (06:05→11:23)
--- NOTE | 2022-03-05 07:56 | NUR ---
PT A/O TIMES 4, C/O ruq PAIN 01/10, UNRELIEVED AFTER MORPHINE, REQUESTING DILAUDID, SR ON CM, O2 SAT 99% 2 L/M VIA NC, SR UP TIMES 2
--- NOTE | 2022-03-05 09:55 | NUR ---
PT REQUESTING DILAUDID FOR RUQ PAIN 01/10, HAS BEEN PAGED, AWAITING REPLY
--- NOTE | 2022-03-05 11:23 | NUR ---
PT C/O 11/10 GENERALIZED UPPER ABD PAIN, ADMINISTERED 2MG MORPHINE IV PER STANDING ORDER
[2022-03-05 11:50] LABS: BASOPHILS # (AUTO) 0.4 K/uL (0.00-0.22); BASOPHILS % (AUTO) 2.9 % (0.0-2.0); EOSINOPHILS # (AUTO) 0.4 K/uL (0-0.4); EOSINOPHILS % (AUTO) 3.2 % (0.0-4.0); LYMPHOCYTES # (AUTO) 2.5 K/uL (2.5-16.5); LYMPHOCYTES % (AUTO) 19.1 % (20.5-51.1); MEAN CORPUSCULAR HEMOGLOBIN 28 pg (27-31); MEAN CORPUSCULAR HGB CONC 35 g/dL (33-37); MEAN CORPUSCULAR VOLUME 80.3 fL (80-94); MONOCYTES # (AUTO) 4.3 K/uL (0.8-1.0); MONOCYTES % (AUTO) 32.8 % (1.7-9.3); NEUTROPHILS # (AUTO) 5.6 K/uL (1.8-7.7); PLATELET COUNT (AUTO) 330 K/uL (140-450); RED BLOOD CELL COUNT(AUTO) 4.36 MIL/uL (4.20-5.40); RED CELL DISTRIBUTION WIDTH 15.2 % (11.6-13.7); WHITE BLOOD COUNT (AUTO) 13.2 K/uL (4.8-10.8)
[2022-03-05 11:57] LABS: HEMOGLOBIN 12.4 g/dL (12.0-16.0)
--- NOTE | 2022-03-05 14:41 | NUR ---
sleeping, no ac distress, sr on cm, o2 sat 98% ra, sr up times 2, awaits admision
--- NOTE | 2022-03-05 17:30 | NUR ---
PER DR RUIZ TELEPHONE ORDER, PLACED ORDER FOR PATIENT ON CONSISTEN CARB DIET.
--- NOTE | 2022-03-05 18:07 | NUR ---
resting, abd pain 5/10, denies any N/V, O2 SAT 98% RA, SR UPTIMES 2, TOLERATING WATER WELL, NO N/V, ABD PAIN
--- NOTE | 2022-03-05 19:28 | NUR ---
REPORT TO NICK NIGHT CUSTODIAN NURSE
--- NOTE | 2022-03-05 19:45 | NUR ---
C/O PAIN, MEDICATED ORDERED.
[2022-03-05] MEDS: HYDROmorphone 1 MG/ML AMP IVP PRN (19:54)
--- NOTE | 2022-03-05 21:00 | NUR ---
PT WAS ADMITTED TO [facility] DEPARTMENT FROM ER THRU [facility] WITH DIAGNOSIS OF PANCREATITIS. PT IS AOX4, AMBULATORY, ABLE TO VERBALIZE NEEDS AND ABLE TO FOLLOW COMMANDS. PT HAS IV ON RIGHT AC GAUGE 20, SALINE LOCK. PT IS ON ROOM AIR AND ON CCHO. PT SKIN IS INTACT. NO COMPLAIN OF PAIN AT THIS TIME. NO S/S OF RESPIRATORY DISTRESS NOTED. ORIENTED TO HOSPITAL/ROOM, BED BUTTON, AND CALL LIGHT. ALL SAFETY MEASURES IMPLEMENTED. BED IN LOW POSITION, BED WHEELS ON LOCKED AND CALL LIGHT WITHIN REACH.
--- NOTE | 2022-03-05 21:00 | NUR ---
TO 121A VIA GURNEY ATTACHED TO WINDOWS MOBILE DEVELOPER ACCOMPANIED BY 2 NURSES. REPORT GIVEN TO DAVID BUTLER
--- NOTE | 2022-03-05 21:52 | NUR ---
NOTIFIED DR. ERICKSON DUE PT IS REQUESTING FOR ACCUCHECK FOR HER DIABETES. DR. ERICKSON ORDER, ACCUCHECK ACHS. ORDER WAS MADE AND CARRIED OUT.
[2022-03-05] MEDS ORDERED: INSULIN LISPRO SLIDING SCALE 100 UNITS/ML VIAL SUBQ PRN (21:55)
[2022-03-06] VITALS: BP 142/82
--- NOTE | 2022-03-06 | NUR ---
PT IS SLEEPING. CHEST RISE AND FALL SYMMETRICALLY NOTED. RESPIRATION IS EVEN AND UNLABORED. ALL SAFETY MEASURES IMPLEMENTED. BED IN LOW POSITION, BED WHEELS ON LOCKED AND CALL LIGHT WITHIN REACH.
[2022-03-06] MEDS: NACL 0.9% 1,000 ML IV SCH ×3 (01:20→14:33)
[2022-03-06 04:00] VITALS: BP 131/65
[2022-03-06] MEDS: HYDROmorphone 1 MG/ML AMP IVP PRN ×2 (04:09→11:13)
--- NOTE | 2022-03-06 04:09 | NUR ---
PT WAS GIVEN PRN PAIN MEDICATION DUE TO ABDOMINAL PAIN WITH PAIN SCALE OF 7/10. ALL SAFETY MEASURES IMPLEMENTED. BED IN LOW POSITION, BED WHEELS ON LOCK AND CALL LIGHT WITHIN REACH.
[2022-03-06 04:50] LABS: POTASSIUM 3.8 mmol/L (3.5-5.1)
[2022-03-06 04:51] LABS: ALBUMIN 2.7 g/dL (3.4-5.0); ANION GAP 7.9 (8-16); CARBON DIOXIDE 29.9 mmol/L (21-32); CREATININE 0.6 mg/dL (0.6-1.3); TOTAL BILIRUBIN 0.8 mg/dL (0.0-1.0)
[2022-03-06 04:52] LABS: MAGNESIUM 1.6 mg/dL (1.8-2.4); PHOSPHORUS 4.9 mg/dL (2.5-4.9)
[2022-03-06] MEDS: BLOOD GLUCOSE MONITORING 1 DEV DEV FS SCH ×2 (06:41→11:16)
--- NOTE | 2022-03-06 06:41 | NUR ---
PT BLOOD GLUCOSE IS 115. NO INSULIN COVERAGE NEEDED.
--- NOTE | 2022-03-06 07:43 | NUR ---
PT IS STABLE. ENDORSED PT TO MORNING SHIFT NURSE FOR CONTINUITY OF CARE.
[2022-03-06 08:00] VITALS: BP 149/77
--- NOTE | 2022-03-06 10:24 | NUR ---
PATIENT HAS BEEN SCREENED AND CATEGORIZED LOW NUTRITION RISK. PATIENT WILL BE SEEN WITHIN 7 DAYS OF ADMISSION. 03/04/22-03/11/[address]
[2022-03-06 13:27] VITALS: BP 140/69
--- NOTE | 2022-03-06 14:23 | NUR ---
DISCONTINUE IV FROM RIGHT AC 20 GAUGE WITH INTACT CATHETER TIP.
--- NOTE | 2022-03-06 14:52 | NUR ---
PATIENT DISCHARGE TO HOME WITH FAMILY AND A COPY OF DISCHARGE INSTRUCTION AND ALL BELONGINGS.
[2022-03-07 14:09] LABS: POTASSIUM 3.9 mmol/L (3.5-5.1)
[2022-03-07 14:10] LABS: ANION GAP 16.9 (8-16)
[2022-03-07 14:11] LABS: CREATININE 0.7 mg/dL (0.6-1.3); TOTAL BILIRUBIN 7.3 mg/dL (0.0-1.0)
== END 2022-03-06 14:40 | disposition home or self-care (01) | DRG 282 ==
LOC: MED 13:40 → MTU 22:39
PROVIDERS: ADMIT Hospitalist; ATTEND Hospitalist
DX: K85.90 Acute pancreatitis without necrosis or infection, unspecified (principal); D72.829 Elevated white blood cell count, unspecified; E11.9 Type 2 diabetes mellitus without complications; I10 Essential (primary) hypertension; J45.909 Unspecified asthma, uncomplicated; Z20.822 Contact with and (suspected) exposure to COVID-19; R11.2 Nausea with vomiting, unspecified; Z90.49 Acquired absence of other specified parts of digestive tract; Z79.4 Long term (current) use of insulin
CPT/HCPCS: 36415; 71045; 76705; 80053; 81001; 82948; 83605; 83690; 83735; 84100; 84703; 85025; 87040; 87081; 87086; 93005; 96361; 96365; 96375; 99285; J0696; J1170; J2270; J7030; J8597; Q0092; Q9967